=== PATIENT | female | born 1975 | race African-American/Black ===

== ENCOUNTER 2019-05-20 12:56 | Emergency (ER) | payer SELFPAY ==
--- NOTE | 2019-05-20 13:17 | EDM.PDOC ---
ED HPI GENERAL MEDICAL PROBLEM - General Chief Complaint: Respiratory Problem Stated Complaint: BAD COUGH Time Seen by Provider: 05/20/19 13:16 Source of Information: Reports: Patient History Limitations: Reports: No Limitations - History of Present Illness INITIAL COMMENTS - FREE TEXT/NARRATIVE: HISTORY AND PHYSICAL: History of present illness: Patient is a 44-year-old female presents the ED with complaint of cough x1 week. She states in the last couple of days her cough is worsened and she has not been able to sleep. She states she is having pain in her chest secondary to the cough. She has had a couple episodes of vomiting due to coughing so hard. She denies fevers, chills, abdominal pain, diarrhea, shortness of breath. Review of systems: As per history of present illness and below otherwise all systems reviewed and negative. Past medical history: As per history of present illness and as reviewed below otherwise noncontributory. Surgical history: As per history of present illness and as reviewed below otherwise noncontributory. Social history: No reported history of drug or alcohol abuse. Family history: As per history of present illness and as reviewed below otherwise noncontributory. Physical exam: General: Patient sitting comfortably in no acute distress and nontoxic appearing HEENT: Atraumatic, normocephalic, pupils reactive, negative for conjunctival pallor or scleral icterus, mucous membranes moist, throat clear, neck supple, nontender, trachea midline. No meningeal signs. Lungs: Clear to auscultation, breath sounds equal bilaterally, chest nontender. Heart: S1S2, regular, negative for clicks, rubs, or overt murmur. Abdomen: Soft, nondistended, nontender. Negative for masses or hepatosplenomegaly. Negative for costovertebral tenderness. No rigidity, rebound , guarding. Pelvis: Stable nontender. Genitourinary: Deferred. Rectal: Deferred. Extremities: Atraumatic, negative for cords or calf pain. Neurovascular unremarkable. Neuro: Awake, alert, oriented. Cranial nerves II through XII unremarkable. Cerebellum unremarkable. Motor and sensory unremarkable throughout. Exam nonfocal. Notes: Diagnostics: Influenza, chest x-ray Therapeutics: none Prescriptions: Azithromycin Fili Hooker Impression: Acute bronchitis Plan: Take medications as instructed Follow up with primary care provider Return to ED as needed as discussed Definitive disposition and diagnosis as appropriate pending reevaluation and review of above. Chest Pain Score (Numeric/FACES): 7 - Related Data Allergies Allergy/AdvReac Type Severity Reaction Status Date / Time No Known Allergies Allergy Verified 05/20/19 13:08 Home Meds: Home Meds Azithromycin [Zithromax] 250 mg PO ASDIRECTED #1 dosepk 05/20/19 [Rx] Benzonatate [Tessalon Perle] 100 mg PO TID #15 capsule 05/20/19 [Rx] Past Medical History - Infectious Disease History Infectious Disease History: Reports: Chicken Pox - Past Surgical History GI Surgical History: Reports: Cholecystectomy Female Surgical History: Reports: Tubal Ligation Social & Family History - Family History Family Medical History: Noncontributory - Tobacco Use Smoking Status *Q: Former Smoker Used Tobacco, but Quit: Yes Month/Year Tobacco Last Used: 2018 - Caffeine Use Caffeine Use: Reports: Coffee - Recreational Drug Use Recreational Drug Use: No ED ROS GENERAL - Review of Systems Review Of Systems: Comprehensive ROS is negative, except as noted in HPI. ED EXAM, GENERAL - Physical Exam Exam: See Below (See dictation) Course - Vital Signs Last Recorded V/S: Last Vital Signs Temp 97.7 F 05/20/19 13:09 Pulse 92 05/20/19 13:09 Resp 20 05/20/19 13:09 BP 106/69 05/20/19 13:09 Pulse Ox 96 05/20/19 13:09 Departure - Departure Time of Disposition: 14:28 Disposition: Home, Self-Care 01 Condition: Good Clinical Impression: Acute bronchitis - Discharge Information Prescriptions: Azithromycin [Zithromax] 250 mg PO ASDIRECTED #1 dosepk Benzonatate [Tessalon Perle] 100 mg PO TID #15 capsule Referrals: PCP,Not In Area [Primary Care Provider] - Forms: ED Department Discharge Additional Instructions: The following information is given to patients seen in the emergency department who are being discharged to home. This information is to outline your options for follow-up care. We provide all patients seen in our emergency department with a follow-up referral. The need for follow-up, as well as the timing and circumstances, are variable depending upon the specifics of your emergency department visit. If you don't have a primary care physician on staff, we will provide you with a referral. We always advise you to contact your personal physician following an emergency department visit to inform them of the circumstance of the visit and for follow-up with them and/or the need for any referrals to a consulting specialist. The emergency department will also refer you to a specialist when appropriate. This referral assures that you have the opportunity for follow-up care with a specialist. All of these measure are taken in an effort to provide you with optimal care, which includes your follow-up. Under all circumstances we always encourage you to contact your private physician who remains a resource for coordinating your care. When calling for follow-up care, please make the office aware that this follow-up is from your recent emergency room visit. If for any reason you are refused follow-up, please contact the [facility] Emergency Department at and asked to speak to the emergency department charge nurse. [facility] [address] [place] [address] [place] [address] Take medications as instructed Follow up with primary care provider Return to ED as needed as discussed Sepsis Event Note - Evaluation Sepsis Screening Result: No Definite Risk - Focused Exam Vital Signs: Vital Signs Temp Pulse Resp BP Pulse Ox 05/20/19 13:09 97.7 F 92 20 106/69 96 Date Exam was Performed: 05/20/19 Time Exam was Performed: 14:28
--- NOTE | 2019-05-20 14:26 | CR ---
Chest: 2 views of the chest were obtained. Comparison: No prior chest x-ray. Heart size and mediastinum are normal. Lungs are clear. Bony structures are unremarkable. Surgical clips are noted within the upper abdomen. Impression: 1. Nothing acute is seen on 2 view chest x-ray. Diagnostic code #2 This report was dictated in [place] Standard Time
== END 2019-05-20 14:39 | disposition home or self-care (01) ==
LOC: MW.ED 12:56
DX: J20.9 Acute bronchitis, unspecified (principal); Z90.49 Acquired absence of other specified parts of digestive tract; Z98.51 Tubal ligation status; Z87.891 Personal history of nicotine dependence
CPT/HCPCS: 71046; 71046-26; 87804; 99283; 99283-25

== ENCOUNTER 2019-12-27 08:38 | Emergency (ER) | payer MEDICAID, OTHER ==
[2019-12-27] MEDS ORDERED: Ibuprofen 800 MG Tab PO ONE (09:04)
--- NOTE | 2019-12-27 09:15 | EDM.PDOC ---
ED HPI GENERAL MEDICAL PROBLEM - General Chief Complaint: Upper Extremity Injury/Pain Stated Complaint: SWOLLEN LT WRIST Time Seen by Provider: 12/27/19 08:58 - History of Present Illness INITIAL COMMENTS - FREE TEXT/NARRATIVE: History of present illness: Patient presents with concerns about left hand pain she is not had any injuries no bites or other trauma but the hand is red and swollen and painful this began 2 days ago and is getting worse. She denies any fever chills she denies having other medical problems other than Sjogren's syndrome. Nothing makes it better or worse. Review of systems: As per history of present illness and below otherwise all systems reviewed and negative. Past medical history: As per history of present illness and as reviewed below otherwise noncontributory. Surgical history: As per history of present illness and as reviewed below otherwise noncontributory. Social history: No reported history of drug or alcohol abuse. Family history: As per history of present illness and as reviewed below otherwise noncontributory. Physical exam: HEENT: Atraumatic, normocephalic, pupils reactive, negative for conjunctival pallor or scleral icterus, mucous membranes moist, throat clear, neck supple, nontender, trachea midline. Lungs: Clear to auscultation, breath sounds equal bilaterally, chest nontender. Heart: S1S2, regular, negative for clicks, rubs, or JVD. Abdomen: Soft, nondistended, nontender. Negative for masses or hepatosplenomegaly. Negative for costovertebral tenderness. Pelvis: Stable nontender. Genitourinary: Deferred. Rectal: Deferred. Extremities: Atraumatic, negative for cords or calf pain. Neurovascular unremarkable. Left hand on the dorsum aspect of the hand is red and tender and warm to touch. Consistent with cellulitis Neuro: Awake, alert, oriented. Cranial nerves II through XII unremarkable. Cerebellum unremarkable. Motor and sensory unremarkable throughout. Exam nonfocal. Diagnostics: [] Therapeutics: [] Impression: Cellulitis left hand [] Plan: Patient be started on naproxen and doxycycline return to the ED over the weekend if worsening [] Definitive disposition and diagnosis as appropriate pending reevaluation and review of above. left writs Pain Score (Numeric/FACES): 9 - Related Data Allergies Allergy/AdvReac Type Severity Reaction Status Date / Time No Known Allergies Allergy Verified 12/27/19 08:52 Home Meds: Home Meds Doxycycline [Vibra-Tabs] 100 mg PO BID #20 tablet 12/27/19 [Rx] Multivitamin [Multi-Vitamin Daily] 1 tab PO DAILY 12/27/19 [History] Naproxen Sodium [Anaprox DS] 550 mg PO BID #20 tab 12/27/19 [Rx] oxyCODONE 10 mg PO TID 12/27/19 [History] Past Medical History HEENT History: Reports: None Cardiovascular History: Reports: None Respiratory History: Reports: None Gastrointestinal History: Reports: None Genitourinary History: Reports: None 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 Musculoskeletal History: Reports: None Neurological History: Reports: None Psychiatric History: Reports: None Endocrine/Metabolic History: Reports: None Hematologic History: Reports: None Immunologic History: Reports: Other (See Below) Other Immunologic History: Sjogrens syndrome Oncologic (Cancer) History: Reports: None Dermatologic History: Reports: None - Infectious Disease History Infectious Disease History: Reports: Chicken Pox - Past Surgical History Head Surgeries/Procedures: Reports: None HEENT Surgical History: Reports: None Cardiovascular Surgical History: Reports: None Respiratory Surgical History: Reports: None GI Surgical History: Reports: Cholecystectomy, Other (See Below) Other GI Surgeries/Procedures: surgery on abdomen to remove tumor Female Surgical History: Reports: Tubal Ligation Endocrine Surgical History: Reports: None Neurological Surgical History: Reports: None Musculoskeletal Surgical History: Reports: None Oncologic Surgical History: Reports: None Dermatological Surgical History: Reports: None Social & Family History - Family History Family Medical History: Noncontributory - Tobacco Use Smoking Status *Q: Never Smoker Second Hand Smoke Exposure: No - Caffeine Use Caffeine Use: Reports: None - Recreational Drug Use Recreational Drug Use: No Review of Systems - Review of Systems Review Of Systems: See Below ED EXAM, GENERAL - Physical Exam Exam: See Below Course - Vital Signs Last Recorded V/S: Last Vital Signs Temp 35.9 C L 12/27/19 08:51 Pulse 95 12/27/19 08:51 Resp 18 12/27/19 08:51 BP 140/71 12/27/19 08:51 Pulse Ox 95 12/27/19 08:51 - Orders/Labs/Meds Meds: Medications Discontinued Medications Generic Name Dose Route Start Last Admin Trade Name Freq PRN Reason Stop Dose Admin Ibuprofen 800 mg 12/27/19 09:04 Motrin PO 12/27/19 09:05 ONETIME ONE Departure - Departure Time of Disposition: 09:14 Disposition: Home, Self-Care 01 Condition: Good Clinical Impression: Cellulitis - Discharge Information *PRESCRIPTION DRUG MONITORING PROGRAM REVIEWED*: Not Applicable *COPY OF PRESCRIPTION DRUG MONITORING REPORT IN PATIENT PILAR: Not Applicable Prescriptions: Naproxen Sodium [Anaprox DS] 550 mg PO BID #20 tab Doxycycline [Vibra-Tabs] 100 mg PO BID #20 tablet Referrals: Anika Sanches NP [Primary Care Provider] - Additional Instructions: The following information is given to patients seen in the emergency department who are being discharged to home. This information is to outline your options for follow-up care. We provide all patients seen in our emergency department with a follow-up referral. The need for follow-up, as well as the timing and circumstances, are variable depending upon the specifics of your emergency department visit. If you don't have a primary care physician on staff, we will provide you with a referral. We always advise you to contact your personal physician following an emergency department visit to inform them of the circumstance of the visit and for follow-up with them and/or the need for any referrals to a consulting specialist. The emergency department will also refer you to a specialist when appropriate. This referral assures that you have the opportunity for follow-up care with a specialist. All of these measure are taken in an effort to provide you with optimal care, which includes your follow-up. Under all circumstances we always encourage you to contact your private physician who remains a resource for coordinating your care. When calling for follow-up care, please make the office aware that this follow-up is from your recent emergency room visit. If for any reason you are refused follow-up, please contact the [facility] Emergency Department at and asked to speak to the emergency department charge nurse. Sepsis Event Note (ED) - Evaluation Sepsis Screening Result: No Definite Risk - Focused Exam Vital Signs: Vital Signs Temp Pulse Resp BP Pulse Ox 12/27/19 08:51 35.9 C L 95 18 140/71 95
== END 2019-12-27 09:25 | disposition home or self-care (01) ==
LOC: MW.ED 08:38
DX: L03.114 Cellulitis of left upper limb (principal)
CPT/HCPCS: 99283; A9270; 99282

== ENCOUNTER 2019-12-28 18:17 | Emergency (ER) | payer MEDICAID ==
[2019-12-28] MEDS ORDERED: Ondansetron 4 MG Tab.DIS PO ONE (18:38)
--- NOTE | 2019-12-28 18:44 | EDM.PDOC ---
ED HPI GENERAL MEDICAL PROBLEM - General Chief Complaint: Skin Complaint Stated Complaint: CELLULITIS LT HAND, NAUSEA Time Seen by Provider: 12/28/19 18:19 - History of Present Illness INITIAL COMMENTS - FREE TEXT/NARRATIVE: History of present illness: [] Patient presents with nausea when taking her antibiotics. Patient was seen by me previously this week for left hand cellulitis she is placed on doxycycline and naproxen she is having some upset stomach to the medication. The hand is improved markedly and she denies any other problems but the nausea is making it difficult for her to eat drink fluids and take her medications. No other complaints no other concerns Review of systems: As per history of present illness and below otherwise all systems reviewed and negative. Past medical history: As per history of present illness and as reviewed below otherwise noncontributory. Surgical history: As per history of present illness and as reviewed below otherwise noncontributory. Social history: No reported history of drug or alcohol abuse. Family history: As per history of present illness and as reviewed below otherwise noncontributory. Physical exam: HEENT: Atraumatic, normocephalic, pupils reactive, negative for conjunctival pallor or scleral icterus, mucous membranes moist, throat clear, neck supple, nontender, trachea midline. Lungs: Clear to auscultation, breath sounds equal bilaterally, chest nontender. Heart: S1S2, regular, negative for clicks, rubs, or JVD. Abdomen: Soft, nondistended, nontender. Negative for masses or hepatosplenomegaly. Negative for costovertebral tenderness. Pelvis: Stable nontender. Genitourinary: Deferred. Rectal: Deferred. Extremities: Atraumatic, negative for cords or calf pain. Neurovascular unremarkable. The cellulitis of the left little finger and surrounding tissues has improved since I first saw the patient. Neuro: Awake, alert, oriented. Cranial nerves II through XII unremarkable. Cerebellum unremarkable. Motor and sensory unremarkable throughout. Exam nonfocal. Diagnostics: [] Therapeutics: [] Impression: Nausea secondary to medication [] Plan: I will dispense a couple Zofran ODT tabs for the patient write her a work note for light duty for a couple days and she will get a prescription for 12 doses of Zofran ODT she can fill in the morning at her pharmacy. [] Definitive disposition and diagnosis as appropriate pending reevaluation and rev iew of above. - Related Data Allergies Allergy/AdvReac Type Severity Reaction Status Date / Time No Known Allergies Allergy Verified 12/28/19 18:28 Home Meds: Home Meds Doxycycline [Vibra-Tabs] 100 mg PO BID #20 tablet 12/27/19 [Rx] Multivitamin [Multi-Vitamin Daily] 1 tab PO DAILY 12/27/19 [History] Naproxen Sodium [Anaprox DS] 550 mg PO BID #20 tab 12/27/19 [Rx] oxyCODONE 10 mg PO TID 12/27/19 [History] Ondansetron [Zofran ODT] 4 mg PO Q6H PRN 5 Days #12 tab.dis 12/28/19 [Rx] Past Medical History HEENT History: Reports: None Cardiovascular History: Reports: None Respiratory History: Reports: None Gastrointestinal History: Reports: None Genitourinary History: Reports: None 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 Musculoskeletal History: Reports: None Neurological History: Reports: None Psychiatric History: Reports: None Endocrine/Metabolic History: Reports: None Hematologic History: Reports: None Immunologic History: Reports: Other (See Below) Other Immunologic History: Sjogrens syndrome Oncologic (Cancer) History: Reports: None Dermatologic History: Reports: Cellulitis - Infectious Disease History Infectious Disease History: Reports: None - Past Surgical History Head Surgeries/Procedures: Reports: None HEENT Surgical History: Reports: None Cardiovascular Surgical History: Reports: None Respiratory Surgical History: Reports: None GI Surgical History: Reports: Cholecystectomy, Other (See Below) Other GI Surgeries/Procedures: surgery on abdomen to remove tumor Female Surgical History: Reports: Tubal Ligation Endocrine Surgical History: Reports: None Neurological Surgical History: Reports: None Musculoskeletal Surgical History: Reports: None Oncologic Surgical History: Reports: None Dermatological Surgical History: Reports: None Social & Family History - Family History Family Medical History: Noncontributory - Tobacco Use Smoking Status *Q: Never Smoker Second Hand Smoke Exposure: No - Caffeine Use Caffeine Use: Reports: Tea - Recreational Drug Use Recreational Drug Use: No ED ROS GENERAL - Review of Systems Review Of Systems: See Below ED EXAM, SKIN/RASH Exam: See Below Course - Vital Signs Last Recorded V/S: Last Vital Signs Temp 36.4 C 12/28/19 18:28 Pulse 92 12/28/19 18:28 Resp 17 12/28/19 18:28 BP 120/80 12/28/19 18:28 Pulse Ox 97 12/28/19 18:28 Departure - Departure Time of Disposition: 18:43 Disposition: Home, Self-Care 01 Condition: Good Clinical Impression: Nausea, Cellulitis - Discharge Information *PRESCRIPTION DRUG MONITORING PROGRAM REVIEWED*: Not Applicable *COPY OF PRESCRIPTION DRUG MONITORING REPORT IN PATIENT PILAR: Not Applicable Prescriptions: Ondansetron [Zofran ODT] 4 mg PO Q6H PRN 5 Days #12 tab.dis PRN Reason: Nausea/Vomiting Instructions: Cellulitis, Adult, Nausea, Adult Referrals: Anika Sanches SIGNING TEACHER [Primary Care Provider] - Additional Instructions: The following information is given to patients seen in the emergency department who are being discharged to home. This information is to outline your options for follow-up care. We provide all patients seen in our emergency department with a follow-up referral. The need for follow-up, as well as the timing and circumstances, are variable depending upon the specifics of your emergency department visit. If you don't have a primary care physician on staff, we will provide you with a referral. We always advise you to contact your personal physician following an emergency department visit to inform them of the circumstance of the visit and for follow-up with them and/or the need for any referrals to a consulting specialist. The emergency department will also refer you to a specialist when appropriate. This referral assures that you have the opportunity for follow-up care with a specialist. All of these measure are taken in an effort to provide you with optimal care, which includes your follow-up. Under all circumstances we always encourage you to contact your private physician who remains a resource for coordinating your care. When calling for follow-up care, please make the office aware that this follow-up is from your recent emergency room visit. If for any reason you are refused follow-up, please contact the [facility] Emergency Department at and asked to speak to the emergency department charge nurse. [facility] [address] [place] [id number] [address] Sepsis Event Note (ED) - Evaluation Sepsis Screening Result: No Definite Risk - Focused Exam Vital Signs: Vital Signs Temp Pulse Resp BP Pulse Ox 12/28/19 18:28 36.4 C 92 17 120/80 97
== END 2019-12-28 19:00 | disposition home or self-care (01) ==
LOC: MW.ED 18:17
DX: L03.012 Cellulitis of left finger (principal); R11.0 Nausea; T36.8X5A Adverse effect of other systemic antibiotics, initial encounter; T39.315A Adverse effect of propionic acid derivatives, initial encounter; Z90.49 Acquired absence of other specified parts of digestive tract; Z79.899 Other long term (current) drug therapy
CPT/HCPCS: 99283; A9270; 99282

== ENCOUNTER 2019-12-30 08:16 | Emergency (ER) | payer MEDICAID ==
[2019-12-30] MEDS ORDERED: Sodium Chloride 0.9% 2.5 ML Syringe FLUSH PRN (08:30)
[2019-12-30] MEDS ORDERED: Sodium Chloride 0.9% 10 ML Syringe FLUSH PRN (08:30)
--- NOTE | 2019-12-30 08:35 | EDM.PDOC ---
ED HPI GENERAL MEDICAL PROBLEM - General Chief Complaint: Skin Complaint Stated Complaint: Hand Swollen Right Time Seen by Provider: 12/30/19 08:25 - History of Present Illness INITIAL COMMENTS - FREE TEXT/NARRATIVE: History of present illness: Patient presents now with right wrist swelling. Initially saw the patient several days ago with an isolated redness swelling and pain to the left fifth digit there is been an abrasion on the dorsal aspect of that finger for all practical purposes it looked like a cellulitis. She was empirically treated with doxycycline. She was also given naproxen for pain yesterday the patient r eturn to the ED because she was nauseous with her medicines and was getting to the point where she was not able to take the medicines the pain in the left fifth digit was resolving the redness was resolving in fact it looked quite a bit better. Now she has redness and swelling on the medial aspect dorsally of her right wrist. She denies any fever chills she has not had any bug or insect bites. No prior medical problems no prior issues with arthritis. There is been no trauma to either hand that she recalls with the involvement of the right wrist now it is beginning to look more like a polyarthritis of some sort. Patient has not attempted to contact or see her primary care doctor as instructed on each prior visit Review of systems: As per history of present illness and below otherwise all systems reviewed and negative. Past medical history: As per history of present illness and as reviewed below otherwise noncontributory. Surgical history: As per history of present illness and as reviewed below otherwise noncontributory. Social history: No reported history of drug or alcohol abuse. Family history: As per history of present illness and as reviewed below otherwise noncon tributory. Physical exam: HEENT: Atraumatic, normocephalic, pupils reactive, negative for conjunctival pallor or scleral icterus, mucous membranes moist, throat clear, neck supple, nontender, trachea midline. Lungs: Clear to auscultation, breath sounds equal bilaterally, chest nontender. Heart: S1S2, regular, negative for clicks, rubs, or JVD. Abdomen: Soft, nondistended, nontender. Negative for masses or hepatosplenomegaly. Negative for costovertebral tenderness. Pelvis: Stable nontender. Genitourinary: Deferred. Rectal: Deferred. Extremities: Atraumatic, negative for cords or calf pain. Neurovascular unremarkable. The redness and swelling the left digit fifth digit has improved the right wrist now is red and swollen and tender. Good distal pulse motor and sensation are present. No other affected joints are noted at this time Neuro: Awake, alert, oriented. Cranial nerves II through XII unremarkable. Cerebellum unremarkable. Motor and sensory unremarkable throughout. Exam nonfocal. Diagnostics: [] Therapeutics: [] Impression: Polyarthritis? Cellulitis? [] Plan: Blood work will be drawn for CBC chemistry sed rate and CRP. [] Definitive disposition and diagnosis as appropriate pending reevaluation and review of above. Right Hand Pain Score (Numeric/FACES): 6 - Related Data Allergies Allergy/AdvReac Type Severity Reaction Status Date / Time No Known Allergies Allergy Verified 12/30/19 08:26 Home Meds: Home Meds Doxycycline [Vibra-Tabs] 100 mg PO BID #20 tablet 12/27/19 [Rx] Multivitamin [Multi-Vitamin Daily] 1 tab PO DAILY 12/27/19 [History] Naproxen Sodium [Anaprox DS] 550 mg PO BID #20 tab 12/27/19 [Rx] oxyCODONE 10 mg PO TID PRN 12/27/19 [History] predniSONE 60 mg PO WITHBREAKFAST 5 Days #15 tab 12/30/19 [Rx] Past Medical History HEENT History: Reports: None Cardiovascular History: Reports: None Respiratory History: Reports: None Gastrointestinal History: Reports: None Genitourinary History: Reports: None 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 Musculoskeletal History: Reports: None Neurological History: Reports: None Psychiatric History: Reports: None Endocrine/Metabolic History: Reports: None Hematologic History: Reports: None Immunologic History: Reports: Other (See Below) Other Immunologic History: Sjogrens syndrome Oncologic (Cancer) History: Reports: None Dermatologic History: Reports: Cellulitis - Infectious Disease History Infectious Disease History: Reports: None - Past Surgical History Head Surgeries/Procedures: Reports: None HEENT Surgical History: Reports: None Cardiovascular Surgical History: Reports: None Respiratory Surgical History: Reports: None GI Surgical History: Reports: Cholecystectomy, Other (See Below) Other GI Surgeries/Procedures: surgery on abdomen to remove tumor Female Surgical History: Reports: Tubal Ligation Endocrine Surgical History: Reports: None Neurological Surgical History: Reports: None Musculoskeletal Surgical History: Reports: None Oncologic Surgical History: Reports: None Dermatological Surgical History: Reports: None Social & Family History - Family History Family Medical History: Noncontributory - Caffeine Use Caffeine Use: Reports: Tea ED ROS GENERAL - Review of Systems Review Of Systems: See Below ED EXAM, SKIN/RASH Exam: See Below Course - Vital Signs Text/Narrative:: Patient has a normal white blood cell count and elevated inflammatory markers. I will start her on a burst of prednisone and have her continue with the doxycycline and follow-up with primary care. When I discussed this with the patient now on her third ED visit she reveals to me ramon almanza by the way I have been diagnosed with Sjogren's syndrome and lupus. In 3 visit she had not bothered to mention any of this. She has an appointment with primary care in the morning. She will be discharged home she is to take prednisone 60 mg for a 5-day burst stop her naproxen for 5 days Tylenol for pain and she may use the Zofran as needed. Last Recorded V/S: Last Vital Signs Temp 35.9 C L 12/30/19 08:27 Pulse 90 12/30/19 08:27 Resp 16 12/30/19 08:27 BP 129/60 12/30/19 08:27 Pulse Ox 97 12/30/19 08:27 - Orders/Labs/Meds Orders: Active Orders 24 hr Category Date Time Status Sodium Chloride 0.9% [Saline Flush] Med 12/30/19 08:30 Active 10 ml FLUSH ASDIRECTED PRN Sodium Chloride 0.9% [Saline Flush] Med 12/30/19 08:30 Active 2.5 ml FLUSH ASDIRECTED PRN Saline Lock Insert [OM.PC] Stat Oth 12/30/19 08:30 Ordered Medication Orders Sodium Chloride (Saline Flush) 10 ml FLUSH ASDIRECTED PRN PRN Reason: Keep Vein Open Last Admin: 12/30/19 08:41 Dose: 10 ml Documented by: DANA Sodium Chloride (Saline Flush) 2.5 ml FLUSH ASDIRECTED PRN PRN Reason: Keep Vein Open Last Admin: 12/30/19 08:41 Dose: 2.5 ml Documented by: DANA Labs: Laboratory Tests 12/30/19 12/30/19 12/30/19 Range/Units 08:40 08:40 08:40 WBC 5.50 (4.0-11.0) K/uL RBC 4.20 L (4.30-5.90) M/uL Hgb 11.9 L (12.0-16.0) g/dL Hct 35.6 L (36.0-46.0) % MCV 84.8 (80.0-98.0) fL MCH 28.3 (27.0-32.0) pg MCHC 33.4 (31.0-37.0) g/dL RDW Std Deviation 41.8 (28.0-62.0) fl RDW Coeff of Donna 14 (11.0-15.0) % Plt Count 323 (150-400) K/uL MPV 10.50 (7.40-12.00) fL Neut % (Auto) 62.1 (48.0-80.0) % Lymph % (Auto) 25.8 (16.0-40.0) % [place] % (Auto) 11.5 (0.0-15.0) % Eos % (Auto) 0.4 (0.0-7.0) % Baso % (Auto) 0.2 (0.0-1.5) % Neut # (Auto) 3.4 (1.4-5.7) K/uL Lymph # (Auto) 1.4 (0.6-2.4) K/uL [place] # (Auto) 0.6 (0.0-0.8) K/uL Eos # (Auto) 0.0 (0.0-0.7) K/uL Baso # (Auto) 0.0 (0.0-0.1) K/uL Nucleated RBC % 0.0 /100WBC Nucleated RBCs # 0 K/uL ESR 39 H (0-19) mm/hr Sodium 134 L (136-145) mmol/L Potassium 3.8 (3.5-5.1) mmol/L Chloride 101 (98-107) mmol/L Carbon Dioxide 23.2 (21.0-32.0) mmol/L BUN 15 (7.0-18.0) mg/dL Creatinine 0.7 (0.6-1.0) mg/dL Est Cr Clr Drug Dosing 88.56 mL/min Estimated GFR (MDRD) > 60.0 ml/min Glucose 131 H (74-106) mg/dL Calcium 9.0 (8.5-10.1) mg/dL Total Bilirubin 0.4 (0.2-1.0) mg/dL AST 34 (15-37) IU/L ALT 26 (14-63) IU/L Alkaline Phosphatase 85 (46-116) U/L C-Reactive Protein 5.80 H (0.00-0.90) mg/dL Total Protein 7.3 (6.4-8.2) g/dL Albumin 3.2 L (3.4-5.0) g/dL Globulin 4.1 H (2.6-4.0) g/dL Albumin/Globulin Ratio 0.8 L (0.9-1.6) Meds: Medications Generic Name Dose Route Start Last Admin Trade Name Freq PRN Reason Stop Dose Admin Sodium Chloride 10 ml 12/30/19 08:30 12/30/19 08:41 Saline Flush FLUSH 10 ml ASDIRECTED PRN Administration Keep Vein Open Sodium Chloride 2.5 ml 12/30/19 08:30 12/30/19 08:41 Saline Flush FLUSH 2.5 ml ASDIRECTED PRN Administration Keep Vein Open Departure - Departure Time of Disposition: 09:46 Disposition: Home, Self-Care 01 Condition: Good Clinical Impression: Polyarthritis - Discharge Information *PRESCRIPTION DRUG MONITORING PROGRAM REVIEWED*: Not Applicable *COPY OF PRESCRIPTION DRUG MONITORING REPORT IN PATIENT IPLAR: Not Applicable Prescriptions: predniSONE 60 mg PO WITHBREAKFAST 5 Days #15 tab Instructions: Arthritis, [id number] Referrals: Anika Sanches VALVE GRINDER [Primary Care Provider] - Forms: ED Department Discharge Additional Instructions: The following information is given to patients seen in the emergency department who are being discharged to home. This information is to outline your options for follow-up care. We provide all patients seen in our emergency department with a follow-up referral. The need for follow-up, as well as the timing and circumstances, are variable depending upon the specifics of your emergency department visit. If you don't have a primary care physician on staff, we will provide you with a referral. We always advise you to contact your personal physician following an emergency department visit to inform them of the circumstance of the visit and for follow-up with them and/or the need for any referrals to a consulting specialist. The emergency department will also refer you to a specialist when appropriate. This referral assures that you have the opportunity for follow-up care with a specialist. All of these measure are taken in an effort to provide you with optimal care, which includes your follow-up. Under all circumstances we always encourage you to contact your private physician who remains a resource for coordinating your care. When calling for follow-up care, please make the office aware that this follow-up is from your recent emergency room visit. If for any reason you are refused follow-up, please contact the [facility] Emergency Department at and asked to speak to the emergency department charge nurse. You need to contact her primary care mgr and see them for follow-up for these issues. Sepsis Event Note (ED) - Focused Exam Vital Signs: Vital Signs Temp Pulse Resp BP Pulse Ox 12/30/19 08:27 35.9 C L 90 16 129/60 97 - My Orders Last 24 Hours: My Active Orders 12/30/19 08:30 Sodium Chloride 0.9% [Saline Flush] 10 ml FLUSH ASDIRECTED PRN Sodium Chloride 0.9% [Saline Flush] 2.5 ml FLUSH ASDIRECTED PRN Saline Lock Insert [OM.PC] Stat - Assessment/Plan Last 24 Hours: My Active Orders 12/30/19 08:30 Sodium Chloride 0.9% [Saline Flush] 10 ml FLUSH ASDIRECTED PRN Sodium Chloride 0.9% [Saline Flush] 2.5 ml FLUSH ASDIRECTED PRN Saline Lock Insert [OM.PC] Stat
[2019-12-30 09:12] LABS: BLOOD UREA NITROGEN,BUN 15 mg/dL (7.0-18.0); CARBON DIOXIDE,CO2 23.2 mmol/L (21.0-32.0); CHLORIDE,CL 101 mmol/L (98-107); GLUCOSE RANDOM 131 mg/dL (74-106); POTASSIUM,K 3.8 mmol/L (3.5-5.1); SODIUM,NA 134 mmol/L (136-145)
== END 2019-12-30 10:03 | disposition home or self-care (01) ==
LOC: MW.ED 08:16
DX: M13.0 Polyarthritis, unspecified (principal)
CPT/HCPCS: 36415; 80053; 85025; 85652; 86140; 99282; 99283

== ENCOUNTER 2020-03-02 18:30 | Emergency (ER) | payer MEDICAID ==
--- NOTE | 2020-03-02 18:41 | EDM.PDOC ---
ED HPI GENERAL MEDICAL PROBLEM - General Chief Complaint: Chest Pain Stated Complaint: CHEST PAIN Time Seen by Provider: 03/02/20 18:38 Upper Chest Pain Score (Numeric/FACES): 6 - Related Data Allergies Allergy/AdvReac Type Severity Reaction Status Date / Time No Known Allergies Allergy Verified 03/02/20 18:39 Home Meds: Home Meds Multivitamin [Multi-Vitamin Daily] 1 tab PO DAILY 12/27/19 [History] Clindamycin HCl 1 cap PO TID #30 capsule 03/02/20 [Rx] Pantoprazole Sodium [Protonix] 40 mg PO DAILY #20 tablet. 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 Musculoskeletal History: Reports: None Neurological History: Reports: None Psychiatric History: Reports: None Endocrine/Metabolic History: Reports: None Hematologic History: Reports: None Immunologic History: Reports: Other (See Below) Other Immunologic History: Sjogrens syndrome Oncologic (Cancer) History: Reports: None Dermatologic History: Reports: Cellulitis - Infectious Disease History Infectious Disease History: Reports: None - Past Surgical History Head Surgeries/Procedures: Reports: None HEENT Surgical History: Reports: None Cardiovascular Surgical History: Reports: None Respiratory Surgical History: Reports: None GI Surgical History: Reports: Cholecystectomy, Other (See Below) Other GI Surgeries/Procedures: surgery on abdomen to remove tumor Female Surgical History: Reports: Tubal Ligation Endocrine Surgical History: Reports: None Neurological Surgical History: Reports: None Musculoskeletal Surgical History: Reports: None Oncologic Surgical History: Reports: None Dermatological Surgical History: Reports: None Social & Family History - Family History Family Medical History: Noncontributory - Caffeine Use Caffeine Use: Reports: Tea ED ROS GENERAL - Review of Systems Review Of Systems: Comprehensive ROS is negative, except as noted in HPI. ED EXAM, GENERAL - Physical Exam Exam: See Below Exam Limited By: No Limitations General Appearance: Alert, No Apparent Distress Ears: Normal External Exam Nose: Normal Inspection Throat/Mouth: Normal Inspection Head: Atraumatic, Normocephalic Neck: Normal Inspection Respiratory/Chest: No Respiratory Distress, Lungs Clear Cardiovascular: Normal Peripheral Pulses, Regular Rate, Rhythm Back Exam: Normal Inspection Extremities: Normal Inspection, Normal Range of Motion Neurological: Alert, Oriented, Normal Cognition Psychiatric: Normal Affect, Normal Mood Skin Exam: Warm, Dry, Intact, Normal Color, No Rash Lymphatic: No Adenopathy #1 Interpretation EKG Date: 03/02/20 Rhythm: NSR [place]: Normal P-Wave: Present QRS: Normal ST-T: Normal QT: Normal EKG Interpretation Comments: Abnormal Q waves V1-2 >30ms Course - Vital Signs Last Recorded V/S: Last Vital Signs Temp 35.8 C L 03/02/20 18:35 Pulse 73 03/02/20 19:41 Resp 16 03/02/20 19:41 BP 108/68 03/02/20 19:41 Pulse Ox 98 03/02/20 19:41 - Orders/Labs/Meds Orders: Active Orders 24 hr Category Date Time Status EKG 12 Lead [EKG Documentation Completion] [RC] STAT Care 03/02/20 18:53 Active Labs: Laboratory Tests 03/02/20 03/02/20 Range/Units 19:13 19:13 WBC 4.43 (4.0-11.0) K/uL RBC 3.82 L (4.30-5.90) M/uL Hgb 10.8 L (12.0-16.0) g/dL Hct 32.8 L (36.0-46.0) % MCV 85.9 (80.0-98.0) fL MCH 28.3 (27.0-32.0) pg MCHC 32.9 (31.0-37.0) g/dL RDW Std Deviation 45.3 (28.0-62.0) fl RDW Coeff of Donna 14 (11.0-15.0) % Plt Count 266 (150-400) K/uL MPV 10.50 (7.40-12.00) fL Neut % (Auto) 45.4 L (48.0-80.0) % Lymph % (Auto) 41.5 H (16.0-40.0) % [place] % (Auto) 11.5 (0.0-15.0) % Eos % (Auto) 1.4 (0.0-7.0) % Baso % (Auto) 0.2 (0.0-1.5) % Neut # (Auto) 2.0 (1.4-5.7) K/uL Lymph # (Auto) 1.8 (0.6-2.4) K/uL [place] # (Auto) 0.5 (0.0-0.8) K/uL Eos # (Auto) 0.1 (0.0-0.7) K/uL Baso # (Auto) 0.0 (0.0-0.1) K/uL Nucleated RBC % 0.0 /100WBC Nucleated RBCs # 0 K/uL Sodium 136 (136-145) mmol/L Potassium 3.6 (3.5-5.1) mmol/L Chloride 102 (98-107) mmol/L Carbon Dioxide 24.0 (21.0-32.0) mmol/L BUN 11 (7.0-18.0) mg/dL Creatinine 0.7 (0.6-1.0) mg/dL Est Cr Clr Drug Dosing 88.56 mL/min Estimated GFR (MDRD) > 60.0 ml/min Glucose 93 (74-106) mg/dL Calcium 9.1 (8.5-10.1) mg/dL Total Bilirubin 0.2 (0.2-1.0) mg/dL AST 20 (15-37) IU/L ALT 20 (14-63) IU/L Alkaline Phosphatase 80 (46-116) U/L Troponin I < 0.050 (0.000-0.056) ng/mL Total Protein 6.7 (6.4-8.2) g/dL Albumin 3.1 L (3.4-5.0) g/dL Globulin 3.6 (2.6-4.0) g/dL Albumin/Globulin Ratio 0.9 (0.9-1.6) Meds: Medications Discontinued Medications Generic Name Dose Route Start Last Admin Trade Name Freq PRN Reason Stop Dose Admin Al Hydroxide/Mg Hydroxide 15 0 ml 03/02/20 20:28 03/02/20 20:52 ml/ Lidocaine HCl 5 ml PO 03/02/20 20:29 20 each ONETIME ONE Administration Ketorolac Tromethamine 60 mg 03/02/20 20:31 03/02/20 20:52 Toradol IM 03/02/20 20:32 60 mg ONETIME ONE Administration - Re-Assessments/Exams Free Text/Narrative Re-Assessment/Exam: 03/02/20 20:54 On reevaluation the patient states that the pain is still there but it does not keep her from doing things. She again points to about the mid sternum and straight up to the hyoid area without any radiation. She also reports that she had what sounds like a coronary angiogram in the past she states that the television cameraman after the procedure "his exact words were beautiful". Free Text/Narrative Re-Assessment/Exam: 03/02/20 21:32 Patient states that the GI cocktail provided relief and she would like to go home. Departure - Departure Time of Disposition: 21:07 Disposition: Home, Self-Care 01 Condition: Good Clinical Impression: Chest pain Qualifiers: Chest pain type: unspecified Qualified Code(s): R07.9 - Chest pain, unspecified Acid reflux Qualifiers: Esophagitis presence: esophagitis presence not specified Qualified Code(s): K21.9 - Gastro-esophageal reflux disease without esophagitis Referrals: PCP,None [Primary Care Provider] - Elidia Chase MD [Physician] - Forms: ED Department Discharge Additional Instructions: The following information is given to patients seen in the emergency department who are being discharged to home. This information is to outline your options for follow-up care. We provide all patients seen in our emergency department with a follow-up referral. The need for follow-up, as well as the timing and circumstances, are variable depending upon the specifics of your emergency department visit. If you don't have a primary care physician on staff, we will provide you with a referral. We always advise you to contact your personal physician following an emergency department visit to inform them of the circumstance of the visit and for follow-up with them and/or the need for any referrals to a consulting specialist. The emergency department will also refer you to a specialist when appropriate. This referral assures that you have the opportunity for follow-up care with a specialist. All of these measure are taken in an effort to provide you with optimal care, which includes your follow-up. Under all circumstances we always encourage you to contact your private physician who remains a resource for coordinating your care. When calling for follow-up care, please make the office aware that this follow-up is from your recent emergency room visit. If you for any reason you are refused follow-up, please contact the [facility] Emergency Department at and asked to speak to the emergency department charge nurse. 1. You have been given a list of dentists. Please make an appointment as you have deep cavities. Your pain will likely recur until your teeth are properly repaired. 2. Take your antibiotic 3 times daily for your infected tooth 3. You must follow-up with cardiology. Your EKG indicates a possible remote cardiac event. Make an appointment with Dr. Justice by calling the number above in the morning. 4. Sepsis Event Note (ED) - Evaluation Sepsis Screening Result: No Definite Risk - Focused Exam Vital Signs: Vital Signs Temp Pulse Resp BP Pulse Ox 03/02/20 19:41 73 16 108/68 98 03/02/20 18:35 35.8 C L 89 18 132/83 98 - My Orders Last 24 Hours: My Active Orders 03/02/20 18:53 EKG 12 Lead [EKG Documentation Completion] [RC] STAT - Assessment/Plan Last 24 Hours: My Active Orders 03/02/20 18:53 EKG 12 Lead [EKG Documentation Completion] [RC] STAT
--- NOTE | 2020-03-02 19:31 | PCM.SN.2 ---
- Free Text/Narrative Note: The done 1027 at 1837 hrs. shows a sinus rhythm with a heart rate of 70. [place] interval is 138 and QT interval is 448. Equality of 78. Patient has Q waves in aVR V1 and V2 and very minimal preliminary are in aVL. There is no prior for comparison. Pression is that there is no obvious acute injury but there certainly is evidence that she may have had some sort of prior myocardial event. Potation was done at 7:30 PM
[2020-03-02 19:53] LABS: BLOOD UREA NITROGEN,BUN 11 mg/dL (7.0-18.0); CHLORIDE,CL 102 mmol/L (98-107); GLUCOSE RANDOM 93 mg/dL (74-106); POTASSIUM,K 3.6 mmol/L (3.5-5.1); SODIUM,NA 136 mmol/L (136-145)
[2020-03-02] MEDS ORDERED: Alum Hydrox/Mag Hydrox/Simeth 15 ML, Lidocaine 2% 5 ML PO ONE ×2 (20:28)
[2020-03-02] MEDS ORDERED: Ketorolac 60 MG/2 ML SDV IM ONE (20:31)
== END 2020-03-02 21:52 | disposition home or self-care (01) ==
LOC: MW.ED 18:30
DX: K21.9 Gastro-esophageal reflux disease without esophagitis (principal); Z90.49 Acquired absence of other specified parts of digestive tract; Z98.51 Tubal ligation status; Z79.899 Other long term (current) drug therapy
CPT/HCPCS: 36415; 80053; 84484; 85025; 93005; 96372; 99285; A9270; J1885; 93010; 99284

== ENCOUNTER 2020-03-25 10:59 | Day surgery (SDC) | payer MEDICAID ==
[2020-03-25] MEDS ORDERED: Lidocaine 2% 5 ML SDV INJECT ONE (12:30)
[2020-03-25] MEDS ORDERED: Ropivacaine 0.5% 5 MG/ML 30 ML SDV INJECT ONE (12:30)
[2020-03-25] MEDS ORDERED: Iopamidol 200-M 10 ML vial ITHECAL ONE (12:30)
[2020-03-25] MEDS ORDERED: Betamethasone Acetate/Betamethasone Sod Phosphate 30 MG/5 ML MDV EPIDUR ONE (12:30)
--- NOTE | 2020-03-26 13:13 | OR ---
SURGEON: Brittany Triana D.O. DATE OF PROCEDURE: 03/25/2020 PRIMARY SURGEON: Brittany Triana DO ASSISTANTS: OR staff present: 1. Donovan Dougherty. 2. RT. Izabella WOUND CLASS: I. PREOPERATIVE DIAGNOSES: 1. Lumbar degenerative disk disease, L4-5 and L5-S1. 2. Lumbar radiculopathy, left lower extremity at L5. 3. Right lower extremity radiculopathy at L5-S1. POSTOPERATIVE DIAGNOSES: 1. Lumbar degenerative disk disease, L4-5 and L5-S1. 2. Lumbar radiculopathy, left lower extremity at L5. 3. Right lower extremity radiculopathy at L5-S1. PROCEDURES PERFORMED: 1. Right S1 transforaminal epidural steroid injection. 2. Left L5 transforaminal epidural steroid injection. 3. Fluoroscopic guidance for needle placement. 4. Local with oral Valium for sedation. SCREENING QUESTIONS: The patient answered "no" to all of the following questions: 1. Are you allergic to iodine, Betadine or latex? 2. Do you have a bleeding disorder? 3. Do you have any joint replacements, heart valve replacements, or a pacemaker? 4. Are you allergic to anti-inflammatories or blood thinners? 5. Do you have any current local or systemic infections? DESCRIPTION OF PROCEDURE: The patient had the procedure thoroughly explained including risks, benefits and alternatives. Consent was signed in my clinic indicating understanding and willingness to proceed. The patient presented to [facility] [place] where the patient was escorted to the dressing room to disrobe and change into a hospital gown. Preoperative vital signs were taken and stable. The patient reported that Valium was taken prior to the procedure. The patient was brought to the procedure room and placed in the prone position on the table. A pillow was placed under the abdomen in order to flatten the lumbar lordosis. The back was prepped with ChloraPrep and sterilely draped. All personnel in the operating room were dressed in appropriate attire including surgical scrubs, head and shoe covers. This was to ensure sterility while in the treatment room. During the time fluoroscopy was in use, all personnel in the operating room wore lead blackburn with thyroid collars. Sterile technique was used during the procedure. The fluoroscope was placed for the right S1 transforaminal epidural steroid injection. There was no sign of infection at the skin site for needle insertion. The skin was anesthetized with 2% lidocaine with a 27 gauge 1-1/2 inch needle. Then, a 22 gauge 3-1/2 inch spinal needle, advanced to the right S1 posterior foramen. Under direct fluoroscopic guidance needle position was verified in three views; AP, oblique and lateral, with 0.2 cubic centimeters increments of Isovue-200 dye. No intravascular flow pattern was observed under live fluoroscopy. Then 6 milligrams of Celestone and local was slowly injected after negative aspiration of heme, cerebrospinal fluid and no paresthesias were noted. The needle was cleared prior to removal from the skin. Then the fluoroscope was placed for the left L5 transforaminal epidural steroid injection. There was no signs of infection at the skin site for needle insertion. The skin was anesthetized with 2% lidocaine. Then a 22-gauge 3-1/2 inch spinal needle was advanced to the left L5 foramen. Under direct fluoroscopic guidance needle position was verified in 3 views as above. There was no intravascular flow pattern of served under live fluoroscopy with Isovue and 200 dye. Then 6 mg of Celestone and local was slowly injected after negative aspiration. There was no heme, CSF or paresthesias noted. The needle was cleared prior to removal from the skin No adverse reactions were noted. The patient was brought to the recovery room awake and in good condition by my staff. The patient was monitored and discharge instructions were given after a brief stay in the recovery area. Both oral and written discharge and follow up instructions were given. The patient will follow up in the clinic in 3-4 weeks post procedure to evaluate the efficacy. The patient verbalized understanding including understanding of those signs and symptoms that would require emergency care and knows how to contact the office if there are any problems or questions in the meantime. PREOPERATIVE PAIN: 8/10. POSTOPERATIVE PAIN: 0/10. FOLLOWUP: In the Pain Clinic in 1 month. JONATAN / CARLEE /[id number] DANTE
== END 2020-03-25 13:03 ==
LOC: MW.SDS 10:59
PROVIDERS: ATTEND Anesthesiology
DX: M51.17 Intervertebral disc disorders with radiculopathy, lumbosacral region (principal); M51.16 Intervertebral disc disorders with radiculopathy, lumbar region; M79.18 Myalgia, other site; M47.26 Other spondylosis with radiculopathy, lumbar region; M47.27 Other spondylosis with radiculopathy, lumbosacral region; J45.909 Unspecified asthma, uncomplicated; Z79.899 Other long term (current) drug therapy; Z87.891 Personal history of nicotine dependence

== ENCOUNTER 2020-04-22 14:59 | Emergency (ER) | payer MEDICAID ==
[2020-04-22] MEDS ORDERED: Sodium Chloride 0.9% 1,000 ML IV ONE (15:20)
--- NOTE | 2020-04-22 15:53 | EDM.PDOC ---
ED HPI GENERAL MEDICAL PROBLEM - General Chief Complaint: Neuro Symptoms/Deficits Stated Complaint: LIGHT HEADED/PRESSURE IN HEAD Time Seen by Provider: 04/22/20 15:14 Source of Information: Reports: Patient History Limitations: Reports: No Limitations - History of Present Illness INITIAL COMMENTS - FREE TEXT/NARRATIVE: HISTORY AND PHYSICAL: History of present illness: Patient is a 45-year-old female who presents to the emergency room with complaints of sinus pressure and feeling "shaky". Symptoms started yesterday afternoon and have progressively gotten worse. She states that she does not notice any improvement with eating (no history of hypogylcemia). She was diagnosed with COVID-19 on 04/08/2020. During her quarantine she states she had a little sinus pressure and a dry cough but "nothing like this". Today she feels "something going on in my chest" describing it as full. Denies any chest pain or palpitations. She has returned to work and performed her routine ADLs. Patient denies any fever, chills, headache, change in vision, syncope or near syncope. Denies any chest pain, back pain, shortness of breath, abdominal pain, nausea, vomiting, diarrhea, constipation or dysuria. Has not noted any blood in urine or stool. Patient has been eating and drinking appropriately. Review of systems: As per history of present illness and below otherwise all systems reviewed and negative. Past medical history: As per history of present illness and as reviewed below otherwise noncontributory. Surgical history: As per history of present illness and as reviewed below otherwise noncontributory. Social history: See social history for further information Family history: As per history of present illness and as reviewed below otherwise noncontributory. Physical exam: General: Well developed and well nourished 45 year old black female. Alert and orientated x 3. Nontoxic in appearance and in no acute distress. Vital signs are stable and have been reviewed by me. Nursing notes were reviewed. HEENT: Atraumatic, normocephalic, pupils equal and reactive bilaterally, negative for conjunctival pallor or scleral icterus, mucous membranes moist, TMs normal bilaterally, throat clear, neck supple, nontender, trachea midline. No drooling or trismus noted. No meningeal signs. No hot potato voice noted. Lungs: Clear to auscultation, breath sounds equal bilaterally, chest nontender. Normal work of breathing, no accessory muscles used. Dry nonproductive cough noted. Heart: S1S2, regular rate and rhythm without overt murmur Abdomen: Soft, nondistended, nontender. Negative for masses or hepatosplenomegaly. Negative for costovertebral tenderness. Pelvis: Stable nontender. Skin: Intact, warm, dry. No lesions or rashes noted. Hematologic: No petechiae or purpra. Mucosa appropriate color and normal nail bed color and refill. Extremities: Atraumatic, moves all extremities per self without difficulty or deficits, negative for cords or calf pain. Neurovascular unremarkable. Neuro: Awake, alert, oriented. Cranial nerves II through XII unremarkable. Cerebellum unremarkable. Motor and sensory unremarkable throughout. Exam nonfocal. Psychiatric: Mood and affect are appropriate. Normal thought process. Answering questions appropriately. Notes: GCS 15, neurologically intact and without any neuro concerns. We will do some basic lab work with this patient along with a chest x-ray as she has been coughing while here. Patient does have a urinary tract infection. She continues to have sinus pressure, I will put her on Augmentin to treat both UTI and if she is starting a sinusitis. Chest x-ray is unremarkable. Her vital signs remained stable I have talked with the patient about today's findings, in addition to providing specific details for plan of care. Reassessment at the time of disposition demonstrates that the patient is in no acute distress. The patient is stable for discharge, counseling was provided and we discussed in great detail signs and symptoms that would prompt them to return to the Emergency Department. Medication, follow up and supportive care measures were reviewed and discussed. Voices understanding and is agreeable to plan of care. Denies any further questions or concerns at this time. Diagnostics: CBC, CMP, Troponin, EKG, CXR, UA Therapeutics: IV fluids, Toradol Prescription: Augmentin Impression: Sinus Headache UTI Plan: 1. Today your lab work was normal with the exception of a UTI. Will give you an antibiotic that will treat UTI and sinusitis (for your sinus pressure). Normal EKG and chest x-ray. 2. Increase your oral fluids. Alternate Tylenol and Ibuprofen for pain management. Try Some Mucinex for your sinus pressure. 3. We encourage you to follow up with your primary care provider in the next few days for re-evaluation and further care/management. If your symptoms should worsen, new symptoms develop or any of the signs and symptoms we discussed should arise please return to the emergency room or call 911 (if needed). Definitive disposition and diagnosis as appropriate pending reevaluation and review of above. - Related Data Allergies Allergy/AdvReac Type Severity Reaction Status Date / Time No Known Allergies Allergy Verified 04/22/20 15:10 Home Meds: Home Meds Multivitamin [Multi-Vitamin Daily] 1 tab PO DAILY 12/27/19 [History] Pantoprazole Sodium [Protonix] 40 mg PO DAILY #20 tablet.dr 03/02/20 [Rx] Hydroxychloroquine [Plaquenil] 400 mg PO DAILY 04/22/20 [History] Past Medical History HEENT History: Reports: None Cardiovascular History: Reports: None Respiratory History: Reports: None Gastrointestinal History: Reports: None Genitourinary History: Reports: None COMPUTER METHODS ANALYST History: Reports: None Musculoskeletal History: Reports: None Neurological History: Reports: None Psychiatric History: Reports: None Endocrine/Metabolic History: Reports: None Hematologic History: Reports: None Immunologic History: Reports: Other (See Below) Other Immunologic History: Sjogrens syndrome Oncologic (Cancer) History: Reports: None Dermatologic History: Reports: Cellulitis - Infectious Disease History Infectious Disease History: Reports: Chicken Pox - Past Surgical History Head Surgeries/Procedures: Reports: None HEENT Surgical History: Reports: None Cardiovascular Surgical History: Reports: None Respiratory Surgical History: Reports: None GI Surgical History: Reports: Cholecystectomy, Other (See Below) Other GI Surgeries/Procedures: surgery on abdomen to remove tumor Female Surgical History: Reports: Tubal Ligation Endocrine Surgical History: Reports: None Neurological Surgical History: Reports: None Musculoskeletal Surgical History: Reports: None Oncologic Surgical History: Reports: None Dermatological Surgical History: Reports: None Social & Family History - Family History Family Medical History: No Pertinent Family History - Tobacco Use Tobacco Use Status *Q: Never Tobacco User - Caffeine Use Caffeine Use: Reports: Coffee, Tea - Recreational Drug Use Recreational Drug Use: No ED ROS GENERAL - Review of Systems Review Of Systems: Comprehensive ROS is negative, except as noted in HPI. ED EXAM, GENERAL - Physical Exam Exam: See Below (See dictation) Course - Vital Signs Last Recorded V/S: Last Vital Signs Temp 96.8 F L 04/22/20 15:11 Pulse 90 04/22/20 15:11 Resp 18 04/22/20 15:11 BP 129/67 04/22/20 15:11 Pulse Ox 98 04/22/20 15:11 - Orders/Labs/Meds Orders: Active Orders 24 hr Category Date Time Status EKG Documentation Completion [RC] STAT Care 04/22/20 15:20 Active CULTURE URINE [RM] Stat Lab 04/22/20 17:10 Received Labs: Laboratory Tests 04/22/20 04/22/20 04/22/20 Range/Units 15:45 15:45 15:45 WBC 9.11 (4.0-11.0) K/uL RBC 4.16 L (4.30-5.90) M/uL Hgb 11.7 L (12.0-16.0) g/dL Hct 35.6 L (36.0-46.0) % MCV 85.6 (80.0-98.0) fL MCH 28.1 (27.0-32.0) pg MCHC 32.9 (31.0-37.0) g/dL RDW Std Deviation 43.9 (28.0-62.0) fl RDW Coeff of Donna 14 (11.0-15.0) % Plt Count 347 (150-400) K/uL MPV 10.20 (7.40-12.00) fL Neut % (Auto) 53.8 (48.0-80.0) % Lymph % (Auto) 37.0 (16.0-40.0) % Faulk % (Auto) 7.6 (0.0-15.0) % Eos % (Auto) 1.4 (0.0-7.0) % Baso % (Auto) 0.2 (0.0-1.5) % Neut # (Auto) 4.9 (1.4-5.7) K/uL Lymph # (Auto) 3.4 H (0.6-2.4) K/uL Faulk # (Auto) 0.7 (0.0-0.8) K/uL Eos # (Auto) 0.1 (0.0-0.7) K/uL Baso # (Auto) 0.0 (0.0-0.1) K/uL Nucleated RBC % 0.0 /100WBC Nucleated RBCs # 0 K/uL Lactate 1.4 (0.20-2.00) mmol/L Sodium 136 (136-145) mmol/L Potassium 3.9 (3.5-5.1) mmol/L Chloride 101 (98-107) mmol/L Carbon Dioxide 23.9 (21.0-32.0) mmol/L BUN 12 (7.0-18.0) mg/dL Creatinine 0.8 (0.6-1.0) mg/dL Est Cr Clr Drug Dosing 76.68 mL/min Estimated GFR (MDRD) > 60.0 ml/min Glucose 117 H (74-106) mg/dL Calcium 9.0 (8.5-10.1) mg/dL Total Bilirubin 0.3 (0.2-1.0) mg/dL AST 19 (15-37) IU/L ALT 31 (14-63) IU/L Alkaline Phosphatase 87 (46-116) U/L Troponin I < 0.050 (0.000-0.056) ng/mL Total Protein 7.2 (6.4-8.2) g/dL Albumin 3.3 L (3.4-5.0) g/dL Globulin 3.9 (2.6-4.0) g/dL Albumin/Globulin Ratio 0.9 (0.9-1.6) Urine Color Urine Appearance Urine pH (5.0-8.0) Ur Specific Raymond (1.001-1.035) Urine Protein (NEGATIVE) mg/dL Urine Glucose (UA) (NEGATIVE) mg/dL Urine Ketones (NEGATIVE) mg/dL Urine Occult Blood (NEGATIVE) Urine Nitrite (NEGATIVE) Urine Bilirubin (NEGATIVE) Urine Urobilinogen (<2.0) EU/dL Ur Leukocyte Esterase (NEGATIVE) Urine RBC (0-2/HPF) Urine WBC (0-5/HPF) Ur Epithelial Cells (NONE-FEW) Amorphous Sediment (NEGATIVE) Urine Bacteria (NEGATIVE) Urine Mucus (NONE-MOD) 04/22/20 Range/Units 17:10 WBC (4.0-11.0) K/uL RBC (4.30-5.90) M/uL Hgb (12.0-16.0) g/dL Hct (36.0-46.0) % MCV (80.0-98.0) fL MCH (27.0-32.0) pg MCHC (31.0-37.0) g/dL RDW Std Deviation (28.0-62.0) fl RDW Coeff of Donna (11.0-15.0) % Plt Count (150-400) K/uL MPV (7.40-12.00) fL Neut % (Auto) (48.0-80.0) % Lymph % (Auto) (16.0-40.0) % Faulk % (Auto) (0.0-15.0) % Eos % (Auto) (0.0-7.0) % Baso % (Auto) (0.0-1.5) % Neut # (Auto) (1.4-5.7) K/uL Lymph # (Auto) (0.6-2.4) K/uL Faulk # (Auto) (0.0-0.8) K/uL Eos # (Auto) (0.0-0.7) K/uL Baso # (Auto) (0.0-0.1) K/uL Nucleated RBC % /100WBC Nucleated RBCs # K/uL Lactate (0.20-2.00) mmol/L Sodium (136-145) mmol/L Potassium (3.5-5.1) mmol/L Chloride (98-107) mmol/L Carbon Dioxide (21.0-32.0) mmol/L BUN (7.0-18.0) mg/dL Creatinine (0.6-1.0) mg/dL Est Cr Clr Drug Dosing mL/min Estimated GFR (MDRD) ml/min Glucose (74-106) mg/dL Calcium (8.5-10.1) mg/dL Total Bilirubin (0.2-1.0) mg/dL AST (15-37) IU/L ALT (14-63) IU/L Alkaline Phosphatase (46-116) U/L Troponin I (0.000-0.056) ng/mL Total Protein (6.4-8.2) g/dL Albumin (3.4-5.0) g/dL Globulin (2.6-4.0) g/dL Albumin/Globulin Ratio (0.9-1.6) Urine Color YELLOW Urine Appearance CLEAR Urine pH 6.0 (5.0-8.0) Ur Specific Raymond 1.025 (1.001-1.035) Urine Protein NEGATIVE (NEGATIVE) mg/dL Urine Glucose (UA) NEGATIVE (NEGATIVE) mg/dL Urine Ketones NEGATIVE (NEGATIVE) mg/dL Urine Occult Blood NEGATIVE (NEGATIVE) Urine Nitrite POSITIVE H (NEGATIVE) Urine Bilirubin NEGATIVE (NEGATIVE) Urine Urobilinogen 0.2 (<2.0) EU/dL Ur Leukocyte Esterase NEGATIVE (NEGATIVE) Urine RBC 0-2 (0-2/HPF) Urine WBC 2-3 (0-5/HPF) Ur Epithelial Cells OCCASIONAL (NONE-FEW) Amorphous Sediment FEW (NEGATIVE) Urine Bacteria FEW (NEGATIVE) Urine Mucus FEW (NONE-MOD) Meds: Medications Discontinued Medications Generic Name Dose Route Start Last Admin Trade Name Freq PRN Reason Stop Dose Admin Sodium Chloride 1,000 mls @ 999 mls/hr 04/22/20 15:20 04/22/20 16:46 Normal Saline IV 04/22/20 16:20 999 mls/hr STAT ONE Administration Ketorolac Tromethamine 30 mg 04/22/20 16:43 04/22/20 16:47 Toradol IVPUSH 04/22/20 16:44 30 mg ONETIME ONE Administration Departure - Departure Time of Disposition: 17:38 Disposition: Home, Self-Care 01 Clinical Impression: Sinus headache UTI (urinary tract infection) Qualifiers: Urinary tract infection type: acute cystitis Hematuria presence: with hematuria Qualified Code(s): N30.01 - Acute cystitis with hematuria - Discharge Information Instructions: Urinary Tract Infection, Adult, [id number] Referrals: Anika Sanches DIRECTOR OF INSTITUTIONAL RESEARCH [Primary Care Provider] - Forms: ED Department Discharge Additional Instructions: The following information is given to patients seen in the emergency department who are being discharged to home. This information is to outline your options for follow-up care. We provide all patients seen in our emergency department with a follow-up referral. The need for follow-up, as well as the timing and circumstances, are variable depending upon the specifics of your emergency department visit. If you don't have a primary care physician on staff, we will provide you with a referral. We always advise you to contact your personal physician following an emergency department visit to inform them of the circumstance of the visit and for follow-up with them and/or the need for any referrals to a consulting specialist. The emergency department will also refer you to a specialist when appropriate. This referral assures that you have the opportunity for follow-up care with a specialist. All of these measure are taken in an effort to provide you with optimal care, which includes your follow-up. Under all circumstances we always encourage you to contact your private physician who remains a resource for coordinating your care. When calling for follow-up care, please make the office aware that this follow-up is from your recent emergency room visit. If for any reason you are refused follow-up, please contact the [facility] Emergency Department at and asked to speak to the emergency department charge nurse. [facility] [address] [place] [id number] [facility] [address] [place] [id number] Thank you for choosing the [facility] emergency department in [place] for your medical needs today. It was a pleasure caring for you. Today you were seen in the emergency department for feeling unwell with recent COVID- 19 diagnosis. 1. Today your lab work was normal with the exception of a UTI. Will give you an antibiotic that will treat UTI and sinusitis (for your sinus pressure). Normal EKG and chest x-ray. 2. Increase your oral fluids. Alternate Tylenol and Ibuprofen for pain management. Try Some Mucinex for your sinus pressure. 3. We encourage you to follow up with your primary care provider in the next few days for re-evaluation and further care/management. If your symptoms should worsen, new symptoms develop or any of the signs and symptoms we discussed should arise please return to the emergency room or call 911 (if needed). Sepsis Event Note (ED) - Evaluation Sepsis Screening Result: No Definite Risk - Focused Exam Vital Signs: Vital Signs Temp Pulse Resp BP Pulse Ox 04/22/20 15:11 96.8 F L 90 18 129/67 98 - My Orders Last 24 Hours: My Active Orders 04/22/20 15:20 EKG Documentation Completion [RC] STAT 04/22/20 17:10 CULTURE URINE [RM] Stat - Assessment/Plan Last 24 Hours: My Active Orders 04/22/20 15:20 EKG Documentation Completion [RC] STAT 04/22/20 17:10 CULTURE URINE [RM] Stat
--- NOTE | 2020-04-22 16:03 | PCM.SN.2 ---
- Free Text/Narrative Note: EG done at 1536 hrs. and read at 1601. Sinus rhythm heart rate 85 CT 130 QT 438 [place] 48 late transition R wave prior for comparison 03/02/2020 and there is no change. Impression no acute injury
--- NOTE | 2020-04-22 16:17 | CR ---
INDICATION: Chest pain and SOB. TECHNIQUE: Upright portable AP image of the chest. COMPARISON: 05/20/2019. FINDINGS: Lungs and pleural spaces clear. Heart, mediastinum and pulmonary vessels normal. No significant osseous abnormality. IMPRESSION: Negative chest. Dictated by Michael Lunsford MD @ Apr 22 2020 4:15PM Signed by Dr. Michael Lunsford @ Apr 22 2020 4:16PM
[2020-04-22 16:26] LABS: BLOOD UREA NITROGEN,BUN 12 mg/dL (7.0-18.0); CARBON DIOXIDE,CO2 23.9 mmol/L (21.0-32.0); CHLORIDE,CL 101 mmol/L (98-107); GLUCOSE RANDOM 117 mg/dL (74-106); POTASSIUM,K 3.9 mmol/L (3.5-5.1); SODIUM,NA 136 mmol/L (136-145)
[2020-04-22] MEDS ORDERED: Ketorolac 30 MG/ML SDV IVPUSH ONE (16:43)
[2020-04-22] MEDS ORDERED: Amoxicillin/Clavulanate K 875-125 MG Tab PO ONE (17:40)
== END 2020-04-22 18:00 | disposition home or self-care (01) ==
LOC: MW.ED 14:59
DX: R51.9 Headache, unspecified (principal); N30.01 Acute cystitis with hematuria; Z79.899 Other long term (current) drug therapy
CPT/HCPCS: 71045; 80053; 81001; 83605; 84484; 85025; 87086; 93005; 96374; 99284; A9270; J1885; J7030

== ENCOUNTER 2020-06-17 11:23 | Day surgery (SDC) | payer MEDICAID ==
[2020-06-17] MEDS ORDERED: Ropivacaine 0.5% 5 MG/ML 30 ML SDV INJECT ONE (12:30)
[2020-06-17] MEDS ORDERED: Lidocaine 2% 5 ML SDV INJECT ONE (12:30)
[2020-06-17] MEDS ORDERED: Iopamidol 200-M 10 ML vial ITHECAL ONE (12:30)
[2020-06-17] MEDS ORDERED: Betamethasone Acetate/Betamethasone Sod Phosphate 30 MG/5 ML MDV EPIDUR ONE (12:30)
--- NOTE | 2020-06-17 17:04 | OR ---
DATE OF PROCEDURE: 06/17/2020 PRIMARY SURGEON: Brittany Triana DO LEAD CASTER HELPER: OR staff present: 1. Donovan Ramos RT. 2. Ascencion De Leon RN. 3. Milad Lopez RN WOUND CLASS: I. PREOPERATIVE DIAGNOSES: 1. Lumbar degenerative disk disease, L4-5 and L5-S1. 2. Lumbar spondylosis. 3. Chronic low back pain. 4. Lumbosacral radiculopathy, L4-5, bilateral lower extremities. POSTOPERATIVE DIAGNOSES: 1. Lumbar degenerative disk disease, L4-5 and L5-S1. 2. Lumbar spondylosis. 3. Chronic low back pain. 4. Lumbosacral radiculopathy, L4-5, bilateral lower extremities. PROCEDURES PERFORMED: 1. Right L4 transforaminal epidural steroid injection. 2. Fluoroscopic guidance for needle placement. 3. Local with oral Valium for sedation. SCREENING QUESTIONS: The patient answered "no" to all of the following questions: 1. Are you allergic to iodine, Betadine or latex? 2. Do you have a bleeding disorder? 3. Do you have any joint replacements, heart valve replacements, or a pacemaker? 4. Are you allergic to anti-inflammatories or blood thinners? 5. Do you have any current local or systemic infections? DESCRIPTION OF PROCEDURE: The patient had the procedure thoroughly explained including risks, benefits and alternatives. Consent was signed in my clinic indicating understanding and willingness to proceed. The patient presented to [facility] [place] where the patient was escorted to the dressing room to disrobe and change into a hospital gown. Preoperative vital signs were taken and stable. The patient reported that Valium was taken prior to the procedure. The patient was brought to the procedure room and placed in the prone position on the table. A pillow was placed under the abdomen in order to flatten the lumbar lordosis. The back was prepped with ChloraPrep and sterilely draped. All personnel in the operating room were dressed in appropriate attire including surgical scrubs, head and shoe covers. This was to ensure sterility while in the treatment room. During the time fluoroscopy was in use, all personnel in the operating room wore lead blackburn with thyroid collars. Sterile technique was used during the procedure. The fluoroscope was placed for the right L4 transforaminal epidural steroid injection. There was no sign of infection at the skin site for needle insertion. The skin was anesthetized with 2% lidocaine with a 27 gauge 1-1/2 inch needle. Then, a 22 gauge 3-1/2 inch spinal needle, advanced to the right L4. Under direct fluoroscopic guidance needle position was verified in three views; AP, oblique and lateral, with 0.2 cubic centimeters increments of Isovue- 200 dye. No intravascular flow pattern was observed under live fluoroscopy. Then 12 milligrams of Celestone and local mixture was slowly injected after negative aspiration of heme, cerebrospinal fluid and no paresthesias were noted. The needle was cleared prior to removal from the skin. No adverse reactions were noted. The patient was brought to the recovery room awake and in good condition by my staff. The patient was monitored and discharge instructions were given after a brief stay in the recovery area. Both oral and written discharge and follow up instructions were given. The patient will follow up in the clinic in 3-4 weeks post procedure to evaluate the efficacy. The patient verbalized understanding including understanding of those signs and symptoms that would require emergency care and knows how to contact the office if there are any problems or questions in the meantime. PREOPERATIVE PAIN: 8/10. POSTOPERATIVE PAIN: 0/10. FOLLOWUP: In the Pain Clinic in 3 weeks. HOGYOHANA / CARLEE /[id number] DANTE
== END 2020-06-17 13:35 ==
LOC: MW.SDS 11:23
PROVIDERS: ATTEND Anesthesiology
DX: G89.29 Other chronic pain (principal); M47.26 Other spondylosis with radiculopathy, lumbar region; M51.16 Intervertebral disc disorders with radiculopathy, lumbar region; M51.17 Intervertebral disc disorders with radiculopathy, lumbosacral region; M47.27 Other spondylosis with radiculopathy, lumbosacral region; J45.909 Unspecified asthma, uncomplicated; M13.0 Polyarthritis, unspecified; Z79.899 Other long term (current) drug therapy; Z98.890 Other specified postprocedural states; Z87.891 Personal history of nicotine dependence
CPT/HCPCS: 64483; 81025; J0702; J2795; Q9966

== ENCOUNTER 2020-07-29 00:02 | Emergency (ER) | payer MEDICAID ==
[2020-07-29] MEDS ORDERED: Sodium Chloride 0.9% 2.5 ML Syringe FLUSH PRN (00:17)
[2020-07-29] MEDS ORDERED: HYDROmorphone 1 MG/ML Syringe IVPUSH ONE (00:17)
[2020-07-29] MEDS ORDERED: Ondansetron 4 MG/2 ML SDV IVPUSH ONE (00:17)
[2020-07-29] MEDS ORDERED: Ketorolac 15 MG/ML SDV IVPUSH ONE (00:17)
[2020-07-29] MEDS ORDERED: Sodium Chloride 0.9% 1,000 ML IV ONE (00:17)
[2020-07-29] MEDS ORDERED: Sodium Chloride 0.9% 10 ML Syringe FLUSH PRN (00:17)
[2020-07-29 00:41] LABS: BLOOD UREA NITROGEN,BUN 12 mg/dL (7.0-18.0); CHLORIDE,CL 100 mmol/L (98-107); GLUCOSE RANDOM 94 mg/dL (74-106); POTASSIUM,K 4.2 mmol/L (3.5-5.1); SODIUM,NA 135 mmol/L (136-145)
[2020-07-29 00:45] LABS: CARBON DIOXIDE,CO2 26.2 mmol/L (21.0-32.0)
[2020-07-29] MEDS ORDERED: Iopamidol 755 MG/ML 500 ML Multipack Bottle IVPUSH STA (01:11)
--- NOTE | 2020-07-29 01:31 | CT ---
INDICATION: Right sided chest pain, history COVID-19 in April TECHNIQUE: CT chest with i.v. contrast using pulmonary angiographic technique. Coronal and sagittal reformats were obtained. CONTRAST: 75 mL Isovue 370 COMPARISON: None FINDINGS: Cardiovascular: The pulmonary arteries are unremarkable in enhancement with no evidence of acute pulmonary embolism. The main pulmonary artery is near the upper limits of normal in size measuring 2.8 cm. The heart has an unremarkable appearance and size. No sign of aneurysm in the thoracic aorta. Mediastinum: No mass or adenopathy seen. Lung: Mild mosaic attenuation is present the lower lobes bilaterally which may be due to small airways disease. Pleura and pericardium: No sign of pleural effusion seen. No significant pericardial effusion is present. Chest wall and axilla: No mass or adenopathy seen. Bone: Unremarkable for age. Upper abdomen: Unremarkable. IMPRESSION: 1. No CT evidence of acute pulmonary emboli seen. Dictated by Ab Tian MD @ 07/29/2020 1:30:54 AM Please note that all CT scans at this facility use dose modulation, iterative reconstruction, and/or weight-based dosing when appropriate to reduce radiation dose to as low as reasonably achievable. Dictated by: Ab Tian MD @ 07/29/2020 01:31:00 (Electronically Signed)
[2020-07-29] MEDS ORDERED: Alum Hydrox/Mag Hydrox/Simeth 15 ML, Lidocaine 2% 5 ML PO ONE ×2 (01:54)
--- NOTE | 2020-07-29 01:56 | EDM.PDOC ---
ED HPI GENERAL MEDICAL PROBLEM - General Chief Complaint: Chest Pain Stated Complaint: BURNING PAIN IN CHEST Time Seen by Provider: 07/29/20 00:36 - History of Present Illness INITIAL COMMENTS - FREE TEXT/NARRATIVE: HISTORY AND PHYSICAL: History of present illness: This is a 45-year-old female with a history significant for Sjogren's disease, rheumatoid arthritis, lupus, diagnosed with coronavirus in April 2020, who presents ER today secondary to right-sided chest burning sensation that started earlier today and has been constant since. Patient denies any recent fevers, shakes, chills, nausea, vomiting, diarrhea, dysuria, frequency, urgency, pain rating down her arms or back. Patient describes the pain as a burning sensation over her right anterior chest wall. Patient denies any exacerbating or relieving factors. Patient denies any history of hypertension, diabetes, liver, lung, kidney problems. Patient denies any tobacco alcohol or drugs. Patient denies any increased discomfort with exertion, rest, meals. Review of systems: As per history of present illness and below otherwise all systems reviewed and negative. Past medical history: As per history of present illness and as reviewed below otherwise noncontributory. Surgical history: As per history of present illness and as reviewed below otherwise noncontributory. Social history: No reported history of drug or alcohol abuse. Family history: As per history of present illness and as reviewed below otherwise noncontributory. Physical exam: This patient was seen and evaluated during the 2019 SARS-CoV-2 novel coronavirus pandemic period. Community viral transmission is ongoing at time of this encounter and the emergency department is operating under pandemic response procedures. Constitutional: Patient is oriented to person, place, and time. Appears well- developed and well-nourished. No distress. HEENT: Moist mucous membranes Head: Normocephalic and atraumatic Eyes: Right eye exhibits no discharge. Left eye exhibits no discharge. No scleral icterus Neck: Normal range of motion. No tracheal deviation present. Cardiovascular: Normal rate and regular rhythm. Pulmonary: Effort normal, no respiratory distress. Abdominal: No distention Musculoskeletal: Normal range of motion Neurologic: Alert and oriented to person, place and time. Skin: [place], warm and dry. Psychiatric: Normal mood and affect. Behavior is normal. Judgment and thought content normal. Nursing note and vital signs have been reviewed Diagnostics: CBC, CMP, troponin negative. CTA of chest reveals no evidence of acute pathology. No pulmonary embolism. EKG: As interpreted by ER physician: Yovani: Nonspecific ST-T wave abnormalities Normal axis No evidence of ST elevation [place] Normal sinus rhythm heart rate of 85 Therapeutics: [] Assessment and plan: This is a 45-year-old female with a history significant for lupus, Sjogren's, coronavirus who presents ER today with right-sided chest wall burning sensation. Patient's cardiac evaluation is extremely low risk for cardiac etiology of her symptoms. Patient's labs and CTA are all normal. Etiology of the patient's discomfort is unclear however given her normal labs and the location of the discomfort it appears extremely unlikely that this is related to a cardiac source. Patient was given Dilaudid and Toradol initially for pain of possibly secondary to her Sjogren's or pleurisy. Patient reports that she did get some relief initially from the medication however she feels like the pain is starting come back. We will try a GI cocktail on her. At this time however patient is stable for discharge and further outpatient evaluation by her primary care physician. Reassessment at the time of disposition demonstrates that the patient is in no acute distress. The patient has remained stable throughout the entire ED visit and is without objective evidence for acute process requiring urgent intervention or hospitalization. The patient is stable for discharge, counseling is provided as documented above, discussed symptomatic treatment and specific conditions for return. I have spoken with the patient/caregiver and discussed todays findings, in addition to providing specific details for the plan of care. Questions are answered and there is agreement with the plan. Definitive disposition and diagnosis as appropriate pending reevaluation and review of above. chest Pain Score (Numeric/FACES): 7 - Related Data Allergies Allergy/AdvReac Type Severity Reaction Status Date / Time No Known Allergies Allergy Verified 07/29/20 00:12 Home Meds: Home Meds Hydroxychloroquine [Plaquenil] 400 mg PO DAILY 04/22/20 [History] Past Medical History HEENT History: Reports: None Cardiovascular History: Reports: None Respiratory History: Reports: None Gastrointestinal History: Reports: None Genitourinary History: Reports: None FRONT EDGER History: Reports: None Musculoskeletal History: Reports: None Neurological History: Reports: None Psychiatric History: Reports: None Endocrine/Metabolic History: Reports: None Hematologic History: Reports: None Immunologic History: Reports: Other (See Below) Other Immunologic History: Sjogrens syndrome Oncologic (Cancer) History: Reports: None Dermatologic History: Reports: Cellulitis - Infectious Disease History Infectious Disease History: Reports: Chicken Pox - Past Surgical History Head Surgeries/Procedures: Reports: None HEENT Surgical History: Reports: None Cardiovascular Surgical History: Reports: None Other Cardiovascular Surgeries/Procedures: hx of heart cath- exploratory Respiratory Surgical History: Reports: None GI Surgical History: Reports: Cholecystectomy, Other (See Below) Other GI Surgeries/Procedures: surgery on abdomen to remove tumor Female Surgical History: Reports: Tubal Ligation Endocrine Surgical History: Reports: None Neurological Surgical History: Reports: None Musculoskeletal Surgical History: Reports: None Oncologic Surgical History: Reports: None Dermatological Surgical History: Reports: None Social & Family History - Family History Family Medical History: No Pertinent Family History - Tobacco Use Tobacco Use Status *Q: Never Tobacco User - Caffeine Use Caffeine Use: Reports: Coffee, Tea - Recreational Drug Use Recreational Drug Use: No ED ROS GENERAL - Review of Systems Review Of Systems: See Below ED EXAM, GENERAL - Physical Exam Exam: See Below Course - Vital Signs Last Recorded V/S: Last Vital Signs Temp 97.7 F 07/29/20 00:09 Pulse 84 07/29/20 01:22 Resp 16 07/29/20 00:09 BP 111/70 07/29/20 00:09 Pulse Ox 95 07/29/20 01:22 - Orders/Labs/Meds Orders: Active Orders 24 hr Category Date Time Status EKG Documentation Completion [RC] AM Care 07/29/20 00:17 Active Sodium Chloride 0.9% [Saline Flush] Med 07/29/20 00:17 Active 10 ml FLUSH ASDIRECTED PRN Sodium Chloride 0.9% [Saline Flush] Med 07/29/20 00:17 Active 2.5 ml FLUSH ASDIRECTED PRN Saline Lock Insert [OM.PC] Stat Oth 07/29/20 00:17 Ordered Medication Orders Sodium Chloride (Sodium Chloride 0.9% 10 Ml Syringe) 10 ml FLUSH ASDIRECTED PRN PRN Reason: Keep Vein Open Last Admin: 07/29/20 00:23 Dose: 10 ml Documented by: ARSEN Sodium Chloride (Sodium Chloride 0.9% 2.5 Ml Syringe) 2.5 ml FLUSH ASDIRECTED PRN PRN Reason: Keep Vein Open Last Admin: 07/29/20 00:23 Dose: 2.5 ml Documented by: ARSEN Labs: Laboratory Tests 07/29/20 07/29/20 Range/Units 00:00 00:00 WBC 5.87 (4.0-11.0) K/uL RBC 4.50 (4.30-5.90) M/uL Hgb 12.4 (12.0-16.0) g/dL Hct 37.6 (36.0-46.0) % MCV 83.6 (80.0-98.0) fL MCH 27.6 (27.0-32.0) pg MCHC 33.0 (31.0-37.0) g/dL RDW Std Deviation 42.5 (28.0-62.0) fl RDW Coeff of Donna 14 (11.0-15.0) % Plt Count 309 (150-400) K/uL MPV 10.80 (7.40-12.00) fL Neut % (Auto) 44.2 L (48.0-80.0) % Lymph % (Auto) 43.6 H (16.0-40.0) % Curry % (Auto) 10.9 (0.0-15.0) % Eos % (Auto) 1.0 (0.0-7.0) % Baso % (Auto) 0.3 (0.0-1.5) % Neut # (Auto) 2.6 (1.4-5.7) K/uL Lymph # (Auto) 2.6 H (0.6-2.4) K/uL Curry # (Auto) 0.6 (0.0-0.8) K/uL Eos # (Auto) 0.1 (0.0-0.7) K/uL Baso # (Auto) 0.0 (0.0-0.1) K/uL Nucleated RBC % 0.0 /100WBC Nucleated RBCs # 0 K/uL Sodium 135 L (136-145) mmol/L Potassium 4.2 (3.5-5.1) mmol/L Chloride 100 (98-107) mmol/L Carbon Dioxide 26.2 (21.0-32.0) mmol/L BUN 12 (7.0-18.0) mg/dL Creatinine 1.3 H (0.6-1.0) mg/dL Est Cr Clr Drug Dosing 47.19 mL/min Estimated GFR (MDRD) 53.7 ml/min Glucose 94 (74-106) mg/dL Calcium 9.5 (8.5-10.1) mg/dL Total Bilirubin 0.2 (0.2-1.0) mg/dL AST 22 (15-37) IU/L ALT 25 (14-63) IU/L Alkaline Phosphatase 90 (46-116) U/L Troponin I < 0.050 (0.000-0.056) ng/mL Total Protein 7.9 (6.4-8.2) g/dL Albumin 3.4 (3.4-5.0) g/dL Globulin 4.5 H (2.6-4.0) g/dL Albumin/Globulin Ratio 0.8 L (0.9-1.6) Meds: Medications Generic Name Dose Route Start Last Admin Trade Name Robbyq PRN Reason Stop Dose Admin Sodium Chloride 10 ml 07/29/20 00:17 07/29/20 00:23 Sodium Chloride 0.9% 10 Ml Syringe FLUSH 10 ml ASDIRECTED PRN Administration Keep Vein Open Sodium Chloride 2.5 ml 07/29/20 00:17 07/29/20 00:23 Sodium Chloride 0.9% 2.5 Ml Syringe FLUSH 2.5 ml ASDIRECTED PRN Administration Keep Vein Open Discontinued Medications Generic Name Dose Route Start Last Admin Trade Name Robbyq PRN Reason Stop Dose Admin Hydromorphone HCl 1 mg 07/29/20 00:17 07/29/20 00:23 Hydromorphone 1 Mg/Ml Syringe IVPUSH 07/29/20 00:18 1 mg ONETIME ONE Administration Sodium Chloride 1,000 mls @ 999 mls/hr 07/29/20 00:17 07/29/20 00:22 Normal Saline IV 07/29/20 01:17 999 mls/hr .Bolus ONE Administration Iopamidol 75 ml 07/29/20 01:11 07/29/20 01:12 Iopamidol 755 Mg/Ml 500 Ml Multipack Bottle IVPUSH 07/29/20 01:12 75 ml ONETIME STA Administration Ketorolac Tromethamine 15 mg 07/29/20 00:17 07/29/20 00:23 Ketorolac 15 Mg/Ml Sdv IVPUSH 07/29/20 00:18 15 mg ONETIME ONE Administration Ondansetron HCl 4 mg 07/29/20 00:17 07/29/20 00:23 Ondansetron 4 Mg/2 Ml Sdv IVPUSH 07/29/20 00:18 4 mg ONETIME ONE Administration Departure - Departure Time of Disposition: 01:55 Disposition: Home, Self-Care 01 Condition: Good Clinical Impression: Nonspecific chest pain - Discharge Information Instructions: Nonspecific Chest Pain, Adult Referrals: Anika Sanches ORDERING BOX OPERATOR [Primary Care Provider] - Additional Instructions: You were seen and evaluated in the ER today secondary to right-sided chest pain. The etiology of your pain is unclear however all the tests that we have conducted in the emergency room has been normal. Please make an appointment to follow-up with your family doctor in the next 1 to 2 days to be reevaluated. They may want to refer you to a meal grinder tender for further cardiac evaluation. Please return to the ER if you start experiencing any new, worsening, or concerning symptoms. The following information is given to patients seen in the emergency department who are being discharged to home. This information is to outline your options for follow-up care. We provide all patients seen in our emergency department with a follow-up referral. The need for follow-up, as well as the timing and circumstances, are variable depending upon the specifics of your emergency department visit. If you don't have a primary care physician on staff, we will provide you with a referral. We always advise you to contact your personal physician following an emergency department visit to inform them of the circumstance of the visit and for follow-up with them and/or the need for any referrals to a consulting specialist. The emergency department will also refer you to a specialist when appropriate. This referral assures that you have the opportunity for follow-up care with a specialist. All of these measure are taken in an effort to provide you with optimal care, which includes your follow-up. Under all circumstances we always encourage you to contact your private physician who remains a resource for coordinating your care. When calling for follow-up care, please make the office aware that this follow-up is from your recent emergency room visit. If for any reason you are refused follow-up, please contact the [facility] Emergency Department at and asked to speak to the emergency department charge nurse. [facility] [address] [place] [address] [facility] [address] [place] [address] Sepsis Event Note (ED) - Evaluation Sepsis Screening Result: No Definite Risk - Focused Exam Vital Signs: Vital Signs Temp Pulse Resp BP Pulse Ox 07/29/20 01:22 84 95 07/29/20 00:09 97.7 F 89 16 111/70 99 - My Orders Last 24 Hours: My Active Orders 07/29/20 00:17 EKG Documentation Completion [RC] AM Sodium Chloride 0.9% [Saline Flush] 10 ml FLUSH ASDIRECTED PRN Sodium Chloride 0.9% [Saline Flush] 2.5 ml FLUSH ASDIRECTED PRN Saline Lock Insert [OM.PC] Stat - Assessment/Plan Last 24 Hours: My Active Orders 07/29/20 00:17 EKG Documentation Completion [RC] AM Sodium Chloride 0.9% [Saline Flush] 10 ml FLUSH ASDIRECTED PRN Sodium Chloride 0.9% [Saline Flush] 2.5 ml FLUSH ASDIRECTED PRN Saline Lock Insert [OM.PC] Stat
== END 2020-07-29 02:21 | disposition home or self-care (01) ==
LOC: MW.ED 00:02
DX: R07.9 Chest pain, unspecified (principal); M06.9 Rheumatoid arthritis, unspecified; Z86.16 Personal history of COVID-19; Z79.899 Other long term (current) drug therapy
CPT/HCPCS: 36415; 71275; 80053; 84484; 85025; 93005; 96374; 96375; 99285; A9270; J1170; J1885; J2405; J7030; Q9967

== ENCOUNTER 2020-09-11 16:23 | Emergency (ER) | payer MEDICAID ==
[2020-09-11] MEDS ORDERED: Bupivacaine 0.5% 10 ML SDV INJECT ONE (17:34)
--- NOTE | 2020-09-11 18:01 | EDM.PDOC ---
ED HPI GENERAL MEDICAL PROBLEM - General Chief Complaint: ENT Problem Stated Complaint: TOOTH PAIN Time Seen by Provider: 09/11/20 17:00 Source of Information: Reports: Patient History Limitations: Reports: No Limitations - History of Present Illness INITIAL COMMENTS - FREE TEXT/NARRATIVE: Patient is a 45-year-old female presents today for right lower tooth pain. Patient has a single tooth on the lower right side that needs to be pulled she cannot see the dentist again in a month. Patient was give antibiotics by previous provider without pain meds. Patient seen today for pain control only. Patient has no fever chills nausea vomiting swelling of the jaw. Lower right tooth Pain Score (Numeric/FACES): 8 - Related Data Allergies Allergy/AdvReac Type Severity Reaction Status Date / Time No Known Allergies Allergy Verified 07/29/20 00:12 Home Meds: Home Meds Hydroxychloroquine [Plaquenil] 400 mg PO DAILY 04/22/20 [History] Past Medical History HEENT History: Reports: None Cardiovascular History: Reports: None Respiratory History: Reports: None Gastrointestinal History: Reports: None Genitourinary History: Reports: None SENIOR ACCOUNTING SPECIALIST History: Reports: None Musculoskeletal History: Reports: None Neurological History: Reports: None Psychiatric History: Reports: None Endocrine/Metabolic History: Reports: None Hematologic History: Reports: None Immunologic History: Reports: Other (See Below) Other Immunologic History: Sjogrens syndrome Oncologic (Cancer) History: Reports: None Dermatologic History: Reports: Cellulitis - Infectious Disease History Infectious Disease History: Reports: Chicken Pox - Past Surgical History Head Surgeries/Procedures: Reports: None HEENT Surgical History: Reports: None Cardiovascular Surgical History: Reports: None Other Cardiovascular Surgeries/Procedures: hx of heart cath- exploratory Respiratory Surgical History: Reports: None GI Surgical History: Reports: Cholecystectomy, Other (See Below) Other GI Surgeries/Procedures: surgery on abdomen to remove tumor Female Surgical History: Reports: Tubal Ligation Endocrine Surgical History: Reports: None Neurological Surgical History: Reports: None Musculoskeletal Surgical History: Reports: None Oncologic Surgical History: Reports: None Dermatological Surgical History: Reports: None Social & Family History - Family History Family Medical History: No Pertinent Family History - Tobacco Use Tobacco Use Status *Q: Never Tobacco User - Caffeine Use Caffeine Use: Reports: Coffee - Recreational Drug Use Recreational Drug Use: No ED ROS ENT - Review of Systems Review Of Systems: See Below Constitutional: Reports: No Symptoms HEENT: Reports: Dental Pain Respiratory: Reports: No Symptoms Endocrine: Reports: No Symptoms GI/Abdominal: Reports: No Symptoms : Reports: No Symptoms Musculoskeletal: Reports: No Symptoms Skin: Reports: No Symptoms Neurological: Reports: No Symptoms Psychiatric: Reports: No Symptoms Hematologic/Lymphatic: Reports: No Symptoms Immunologic: Reports: No Symptoms ED EXAM, ENT - Physical Exam Exam: See Below Exam Limited By: No Limitations General Appearance: Alert, WD/WN, No Apparent Distress Mouth/Throat: No: Normal Gums, Normal Teeth, Dental Abcess, Drooling Respiratory/Chest: No Respiratory Distress Cardiovascular: Normal Peripheral Pulses Neurological: Alert, Oriented ED ENT PROCEDURES - Additional/Other Procedure(s) Other (Free Text) Procedure(s): Digital block with 0.5% with buprovicaine. Was applied to the right lower jaw. No complications were noted. Course - Vital Signs Last Recorded V/S: Last Vital Signs Temp 97.0 F 09/11/20 17:00 Pulse 95 09/11/20 17:00 Resp 18 09/11/20 17:00 BP 134/68 09/11/20 17:00 Pulse Ox 99 09/11/20 17:00 - Orders/Labs/Meds Meds: Medications Discontinued Medications Generic Name Dose Route Start Last Admin Trade Name Leesa PRJulian Reason Stop Dose Admin Bupivacaine HCl 10 ml 09/11/20 17:34 09/11/20 17:55 Bupivacaine 0.5% 10 Ml Sdv INJECT 09/11/20 17:35 10 ml ONETIME ONE Administration Departure - Departure Time of Disposition: 18:00 Disposition: Home, Self-Care 01 Condition: Good Clinical Impression: Dental caries - Discharge Information *PRESCRIPTION DRUG MONITORING PROGRAM REVIEWED*: Not Applicable *COPY OF PRESCRIPTION DRUG MONITORING REPORT IN PATIENT PILAR: Not Applicable Instructions: Tooth Pulling, Care After Referrals: PCP,None [Primary Care Provider] - Additional Instructions: The following information is given to patients seen in the emergency department who are being discharged to home. This information is to outline your options for follow-up care. We provide all patients seen in our emergency department with a follow-up referral. The need for follow-up, as well as the timing and circumstances, are variable depending upon the specifics of your emergency department visit. If you don't have a primary care physician on staff, we will provide you with a referral. We always advise you to contact your personal physician following an emergency department visit to inform them of the circumstance of the visit and for follow-up with them and/or the need for any referrals to a consulting specialist. The emergency department will also refer you to a specialist when appropriate. This referral assures that you have the opportunity for follow-up care with a specialist. All of these measure are taken in an effort to provide you with optimal care, which includes your follow-up. Under all circumstances we always encourage you to contact your private physician who remains a resource for coordinating your care. When calling for follow-up care, please make the office aware that this follow-up is from your recent emergency room visit. If for any reason you are refused follow-up, please contact the [facility] Emergency Department at and asked to speak to the emergency department charge nurse. Please follow up with your primary care physician. If you do not have a primary care physician, see below: [facility] [address] [place] [id number] [facility] [address] [place] [id number] You were seen today for tooth pain. We were able to provide a numbing block to the tooth that should last for the next few hours. We also sent home with pain medication. Have any swelling increased pain fever chills please return to the ED. Sepsis Event Note (ED) - Evaluation Sepsis Screening Result: No Definite Risk - Focused Exam Vital Signs: Vital Signs Temp Pulse Resp BP Pulse Ox 09/11/20 17:00 97.0 F 95 18 134/68 99 - Assessment/Plan Plan: Patient is a 45-year-old female presents today for dental pain. We were able to do a dental block. Patient will also be sent home with pain medication. Patient stable for discharge home.
== END 2020-09-11 18:31 | disposition home or self-care (01) ==
LOC: MW.ED 16:23
DX: K02.9 Dental caries, unspecified (principal)
CPT/HCPCS: 64400; 99282; J3490

== ENCOUNTER 2020-09-12 13:54 | Emergency (ER) | payer MEDICAID ==
--- NOTE | 2020-09-12 14:13 | EDM.PDOC ---
ED HPI GENERAL MEDICAL PROBLEM - General Chief Complaint: ENT Problem Stated Complaint: TOOTH PAIN Time Seen by Provider: 09/12/20 13:55 Source of Information: Reports: Patient History Limitations: Reports: No Limitations - History of Present Illness INITIAL COMMENTS - FREE TEXT/NARRATIVE: Patient is a 45-year-old female presents today for right lower jaw pain and swelling. Patient was seen here yesterday for the pain and was given a block to help with the pain. Patient came today because she has some swelling became nervous. We told the patient is like related to the tooth need to come out and possible dental abscess. Patient has no difficulty swallowing or breathing. Patient was started on antibiotics 2 days ago by outside clinic and given otherwise. Patient scheduled see a dentist at the end of the month. Patient has no other complaints. 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 Musculoskeletal History: Reports: None Neurological History: Reports: None Psychiatric History: Reports: None Endocrine/Metabolic History: Reports: None Hematologic History: Reports: None Immunologic History: Reports: Other (See Below) Other Immunologic History: Sjogrens syndrome Oncologic (Cancer) History: Reports: None Dermatologic History: Reports: Cellulitis - Infectious Disease History Infectious Disease History: Reports: Chicken Pox - Past Surgical History Head Surgeries/Procedures: Reports: None HEENT Surgical History: Reports: None Cardiovascular Surgical History: Reports: None Other Cardiovascular Surgeries/Procedures: hx of heart cath- exploratory Respiratory Surgical History: Reports: None GI Surgical History: Reports: Cholecystectomy, Other (See Below) Other GI Surgeries/Procedures: surgery on abdomen to remove tumor Female Surgical History: Reports: Tubal Ligation Endocrine Surgical History: Reports: None Neurological Surgical History: Reports: None Musculoskeletal Surgical History: Reports: None Oncologic Surgical History: Reports: None Dermatological Surgical History: Reports: None Social & Family History - Family History Family Medical History: No Pertinent Family History - Caffeine Use Caffeine Use: Reports: Coffee ED ROS ENT - Review of Systems Review Of Systems: See Below Constitutional: Reports: No Symptoms HEENT: Reports: Dental Pain Respiratory: Reports: No Symptoms Endocrine: Reports: No Symptoms GI/Abdominal: Reports: No Symptoms : Reports: No Symptoms Musculoskeletal: Reports: No Symptoms Skin: Reports: No Symptoms Neurological: Reports: No Symptoms Psychiatric: Reports: No Symptoms Hematologic/Lymphatic: Reports: No Symptoms Immunologic: Reports: No Symptoms ED EXAM, ENT - Physical Exam Exam: See Below Exam Limited By: No Limitations General Appearance: Alert, WD/WN, No Apparent Distress Nose: Normal Inspection Mouth/Throat: Normal Inspection, Dental Abcess, Dental Pain. No: Normal Gums Respiratory/Chest: No Respiratory Distress Extremities: Normal Inspection Neurological: Alert, Oriented, Normal Cognition, Normal Gait Departure - Departure Time of Disposition: 14:13 Disposition: Home, Self-Care 01 Condition: Good Clinical Impression: Pain, dental - Discharge Information *PRESCRIPTION DRUG MONITORING PROGRAM REVIEWED*: Not Applicable *COPY OF PRESCRIPTION DRUG MONITORING REPORT IN PATIENT PILAR: Not Applicable Instructions: Dental Abscess Referrals: PCP,None [Primary Care Provider] - Additional Instructions: The following information is given to patients seen in the emergency department who are being discharged to home. This information is to outline your options for follow-up care. We provide all patients seen in our emergency department with a follow-up referral. The need for follow-up, as well as the timing and circumstances, are variable depending upon the specifics of your emergency department visit. If you don't have a primary care physician on staff, we will provide you with a referral. We always advise you to contact your personal physician following an emergency department visit to inform them of the circumstance of the visit and for follow-up with them and/or the need for any referrals to a consulting specialist. The emergency department will also refer you to a specialist when appropriate. This referral assures that you have the opportunity for follow-up care with a specialist. All of these measure are taken in an effort to provide you with optimal care, which includes your follow-up. Under all circumstances we always encourage you to contact your private physician who remains a resource for coordinating your care. When calling for follow-up care, please make the office aware that this follow-up is from your recent emergency room visit. If for any reason you are refused follow-up, please contact the [facility] Emergency Department at and asked to speak to the emergency department charge nurse. Please follow up with your primary care physician. If you do not have a primary care physician, see below: [facility] [address] [place] [address] My [facility] [address] [place] [address] You are seen today for tooth pain. You have some swelling which can be caused by the dental abscess. You start antibiotics. Need to keep taking antibiotics if the swelling continues to to increase please return to the ED. Otherwise continue take antibiotics and follow-up with dental dental week. - Assessment/Plan Plan: Patient is a 45-year-old female presents today for right lower jaw pain. Patient was seen by me yesterday for same complaint. Patient has some swelling this morning. On exam patient has minimal swelling has no SOB or difficulty swallowing. Patient looks well tolerating secretions. Patient is already on antibiotics outside facility recommend patient continue antibiotics and will give strict return precautions. Patient with follow-up with dental for possible extraction
== END 2020-09-12 14:25 | disposition home or self-care (01) ==
LOC: MW.ED 13:54
DX: K08.89 Other specified disorders of teeth and supporting structures (principal)
CPT/HCPCS: 99282

== ENCOUNTER 2020-09-22 18:16 | Emergency (ER) | payer MEDICAID ==
--- NOTE | 2020-09-22 18:35 | EDM.PDOC ---
ED HPI GENERAL MEDICAL PROBLEM - General Chief Complaint: Respiratory Problem Stated Complaint: COUGH Time Seen by Provider: 09/22/20 18:35 Source of Information: Reports: Patient History Limitations: Reports: No Limitations - History of Present Illness INITIAL COMMENTS - FREE TEXT/NARRATIVE: HISTORY AND PHYSICAL: History of present illness: Patient is a 45-year-old female who presents to the emergency room with complaints of a harsh dry nonproductive cough over the past few days. She reports she had been evaluated at an outside clinic and has had 2 separate antibiotics, one oral which she completed and an IM injection today. She was also given Tessalon Perles which have not alleviated her discomfort. Patient denies any fever, chills, headache, change in vision, syncope or near syncope. Denies any chest pain, back pain, shortness of breath or hemoptysis. Denies any abdominal pain, nausea, vomiting, diarrhea, constipation or dysuria. No concern for . Patient has been eating and drinking appropriately. Review of systems: As per history of present illness and below otherwise all systems reviewed and negative. Past medical history: As per history of present illness and as reviewed below otherwise noncontributory. Surgical history: As per history of present illness and as reviewed below otherwise noncontributory. Social history: See social history for further information Family history: As per history of present illness and as reviewed below otherwise noncontributory. Physical exam: General: Well developed and well nourished. Alert and orientated x 3. Nontoxic in appearance and in no acute distress. Vital signs are stable and have been reviewed by me. Nursing notes were reviewed. HEENT: Atraumatic, normocephalic, pupils equal and reactive bilaterally, negative for conjunctival pallor or scleral icterus, mucous membranes moist, TMs normal bilaterally, throat clear, neck supple, nontender, trachea midline. No drooling or trismus noted. No meningeal signs. No hot potato voice noted. Lungs: Clear to auscultation bilaterally. No wheezes, rales, or rhonchi. Chest nontender. Normal work of breathing, no accessory muscles used. Dry harsh nonproductive cough. Heart: S1S2, regular rate and rhythm without overt murmur, gallops, or rubs. No JVD. No peripheral edema Abdomen: Soft, nondistended, nontender. Skin: Intact, warm, dry. No lesions or rashes noted. Hematologic: No petechiae or purpra. Mucosa appropriate color and normal nail bed color and refill. Extremities: Atraumatic, moves all extremities per self without difficulty or deficits, negative for cords or calf pain. Neurovascular unremarkable. Neuro: Awake, alert, oriented. Cranial nerves II through XII unremarkable. Cerebellum unremarkable. Motor and sensory unremarkable throughout. Exam nonfocal. Psychiatric: Mood and affect are appropriate. Normal thought process. Answering questions appropriately. Notes: *This patient was seen and evaluated during the 2019 SARS-CoV-2 novel coronavirus pandemic period. Community viral transmission is ongoing at time of this encounter and the emergency department is operating under pandemic response procedures. I have talked with the patient about today's findings, in addition to providing specific details for plan of care. Reassessment at the time of disposition demonstrates that the patient is in no acute distress. The patient is stable for discharge, counseling was provided and we discussed in great detail signs and symptoms that would prompt them to return to the Emergency Department. Medication, follow up and supportive care measures were reviewed and discussed. Voices understanding and is agreeable to plan of care. Denies any further questions or concerns at this time. Diagnostics: CXR, COVID-19 Therapeutics: None Prescription: Cheratussin, Predisone Impression: Bronchitis Plan: 1. You were evaluated today on an emergent basis. Your chest x-ray is unremarkable. 2. You can alternate Tylenol and ibuprofen as needed for pain and fever management. 3. We encourage you to follow up with your primary care provider and/or recommended specialist in the next few days for re-evaluation and further care/management. 4. If your symptoms should worsen, new symptoms develop or any of the signs and symptoms we discussed should arise please return to the emergency room or call 911 (if needed). Definitive disposition and diagnosis as appropriate pending reevaluation and review of above. 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 Musculoskeletal History: Reports: None Neurological History: Reports: None Psychiatric History: Reports: None Endocrine/Metabolic History: Reports: None Hematologic History: Reports: None Immunologic History: Reports: Other (See Below) Other Immunologic History: Sjogrens syndrome Oncologic (Cancer) History: Reports: None Dermatologic History: Reports: Cellulitis - Infectious Disease History Infectious Disease History: Reports: Chicken Pox - Past Surgical History Head Surgeries/Procedures: Reports: None HEENT Surgical History: Reports: None Cardiovascular Surgical History: Reports: None Other Cardiovascular Surgeries/Procedures: hx of heart cath- exploratory Respiratory Surgical History: Reports: None GI Surgical History: Reports: Cholecystectomy, Other (See Below) Other GI Surgeries/Procedures: surgery on abdomen to remove tumor Female Surgical History: Reports: Tubal Ligation Endocrine Surgical History: Reports: None Neurological Surgical History: Reports: None Musculoskeletal Surgical History: Reports: None Oncologic Surgical History: Reports: None Dermatological Surgical History: Reports: None Social & Family History - Family History Family Medical History: No Pertinent Family History - Caffeine Use Caffeine Use: Reports: None ED ROS GENERAL - Review of Systems Review Of Systems: Comprehensive ROS is negative, except as noted in HPI. ED EXAM, GENERAL - Physical Exam Exam: See Below (See dictation) Course - Vital Signs Last Recorded V/S: Last Vital Signs Temp 97.5 F 09/22/20 18:33 Pulse 82 09/22/20 18:33 Resp 20 09/22/20 18:33 BP 129/63 09/22/20 18:33 Pulse Ox 99 09/22/20 18:33 - Orders/Labs/Meds Labs: Laboratory Tests 09/22/20 Range/Units 18:51 Influenza Type A RNA NEGATIVE (NEGATIVE) Influenza Type B RNA NEGATIVE (NEGATIVE) SARS-CoV-2 RNA (TRISHA) NEGATIVE (NEGATIVE) Departure - Departure Time of Disposition: 20:00 Disposition: Home, Self-Care 01 Clinical Impression: Bronchitis - Discharge Information Instructions: Cough, Adult, [id number] Referrals: Maria Mejía NP [Primary Care Provider] - Forms: ED Department Discharge Additional Instructions: The following information is given to patients seen in the emergency department who are being discharged to home. This information is to outline your options for follow-up care. We provide all patients seen in our emergency department with a follow-up referral. The need for follow-up, as well as the timing and circumstances, are variable depending upon the specifics of your emergency department visit. If you don't have a primary care physician on staff, we will provide you with a referral. We always advise you to contact your personal physician following an emergency department visit to inform them of the circumstance of the visit and for follow-up with them and/or the need for any referrals to a consulting specialist. The emergency department will also refer you to a specialist when appropriate. This referral assures that you have the opportunity for follow-up care with a specialist. All of these measure are taken in an effort to provide you with optimal care, which includes your follow-up. Under all circumstances we always encourage you to contact your private physician who remains a resource for coordinating your care. When calling for follow-up care, please make the office aware that this follow-up is from your recent emergency room visit. If for any reason you are refused follow-up, please contact the [facility] Emergency Department at and asked to speak to the emergency department charge nurse. [facility] [address] [place] [address] [address] Thank you for choosing the [facility] emergency department in [place] for your medical needs today. It was a pleasure caring for you. Today you were seen in the emergency department for cough. 1. You were evaluated today on an emergent basis. Your chest x-ray is unremarkable. 2. You can alternate Tylenol and ibuprofen as needed for pain and fever management. 3. We encourage you to follow up with your primary care provider and/or recomme nded specialist in the next few days for re-evaluation and further care/management. 4. If your symptoms should worsen, new symptoms develop or any of the signs and symptoms we discussed should arise please return to the emergency room or call 911 (if needed). Sepsis Event Note (ED) - Focused Exam Vital Signs: Vital Signs Temp Pulse Resp BP Pulse Ox 09/22/20 18:33 97.5 F 82 20 129/63 99
--- NOTE | 2020-09-22 19:17 | CR ---
INDICATION: pain/sob. prior 20-may-2019 TECHNIQUE: Chest 2 views. COMPARISON: 05/20/19 FINDINGS: Cardiovascular and mediastinum: Heart size and vasculature are normal in caliber and appearance. Mediastinum is within normal limits. Lungs and pleural spaces: Lungs are clear. No sign of infiltrate or mass. No sign of pleural effusion. No pneumothorax. Bones and soft tissues: No significant findings. IMPRESSION: Unremarkable chest. Dictated by: Junior Hernandez MD @ 09/22/2020 19:17:02 (Electronically Signed)
[2020-09-22 19:50] LABS: CORONAVIRUS COVID-19 NAA NEGATIVE (NEGATIVE); INFLUENZA A NAA NEGATIVE (NEGATIVE); INFLUENZA B NAA NEGATIVE (NEGATIVE)
== END 2020-09-22 20:05 | disposition home or self-care (01) ==
LOC: MW.ED 18:16
DX: J40 Bronchitis, not specified as acute or chronic (principal); Z20.822 Contact with and (suspected) exposure to COVID-19
CPT/HCPCS: 0240U; 71046; 99283

== ENCOUNTER 2022-02-27 14:02 | Emergency (ER) | payer MEDICAID | END 2022-02-27 17:24 | disposition home or self-care (01) | LOC: MW.ED 14:02 | DX: L23.9 Allergic contact dermatitis, unspecified cause (principal); Z79.899 Other long term (current) drug therapy | CPT/HCPCS: 99282; 99283 ==

== ENCOUNTER 2022-05-02 12:56 | Emergency (ER) | payer MEDICAID ==
[2022-05-02] MEDS ORDERED: Ondansetron 4 MG/2 ML SDV IVPUSH ONE (13:31)
[2022-05-02] MEDS ORDERED: Sodium Chloride 0.9% 1,000 ML IV ONE (13:31)
[2022-05-02 14:46] LABS: CARBON DIOXIDE,CO2 24.6 mmol/L (21.0-32.0); POTASSIUM,K 3.7 mmol/L (3.5-5.1)
[2022-05-02 14:48] LABS: CORONAVIRUS COVID-19 NAA NEGATIVE (NEGATIVE); INFLUENZA A NAA NEGATIVE (NEGATIVE); INFLUENZA B NAA NEGATIVE (NEGATIVE)
[2022-05-02] MEDS ORDERED: Metoclopramide 10 MG/2 ML SDV IV ONE (15:41)
[2022-05-02] MEDS ORDERED: Acetaminophen 500 MG Tab PO ONE (15:42)
== END 2022-05-02 16:10 | disposition home or self-care (01) ==
LOC: MW.ED 12:56
DX: K52.9 Noninfective gastroenteritis and colitis, unspecified (principal); Z79.899 Other long term (current) drug therapy; Z90.49 Acquired absence of other specified parts of digestive tract; Z20.822 Contact with and (suspected) exposure to COVID-19
CPT/HCPCS: 0240U; 36415; 80053; 80143; 85025; 96361; 96374; 96375; 99284; A9270; J2405; J2765; J7030

== ENCOUNTER 2022-09-14 13:10 | Emergency (ER) | payer MEDICAID ==
[2022-09-14] MEDS ORDERED: Aspirin 81 MG Tab.Chew PO ONE (13:19)
[2022-09-14] MEDS ORDERED: Sodium Chloride 0.9% 2.5 ML Syringe FLUSH PRN (13:19)
[2022-09-14] MEDS ORDERED: Sodium Chloride 0.9% 10 ML Syringe FLUSH PRN (13:19)
[2022-09-14 13:36] LABS: BASOPHILS PERCENT AUTO 0.3 % (0.0-1.5); EOSINOPHILS PERCENT AUTO 0.3 % (0.0-7.0); HEMATOCRIT 34.6 % (36.0-46.0); HEMOGLOBIN 11.8 g/dL (12.0-16.0); LYMPHOCYTES ABSOLUTE AUTO 1.6 K/uL (0.6-2.4); LYMPHOCYTES PERCENT AUTO 46.8 % (16.0-40.0); MEAN CORPUSCULAR HEMOGLOBIN 28.2 pg (27.0-32.0); MEAN CORPUSCULAR HGB CONC 34.1 g/dL (31.0-37.0); MEAN CORPUSCULAR VOLUME 82.6 fL (80.0-98.0); MONOCYTES ABSOLUTE AUTO 0.4 K/uL (0.0-0.8); NEUTROPHILS ABSOLUTE AUTO 1.4 K/uL (1.4-5.7); NEUTROPHILS PERCENT AUTO 41.6 % (48.0-80.0); NRBC ABSOLUTE 0 K/uL; PLATELET COUNT,PLT 205 K/uL (150-400); RED BLOOD CELL COUNT 4.19 M/uL (4.30-5.90); WHITE BLOOD CELL COUNT,WBC 3.44 K/uL (4.0-11.0)
[2022-09-14] MEDS ORDERED: Ketorolac 30 MG/ML SDV IVPUSH ONE (13:39)
[2022-09-14] MEDS ORDERED: Sodium Chloride 0.9% 1,000 ML IV SCH (13:45)
[2022-09-14 14:29] LABS: A/G RATIO 0.8 (0.9-1.6); ALBUMIN 3.4 g/dL (3.4-5.0); BILIRUBIN TOTAL 0.4 mg/dL (0.2-1.0); CALCIUM 9.1 mg/dL (8.5-10.1); CARBON DIOXIDE,CO2 26.3 mmol/L (21.0-32.0); CREATININE 0.7 mg/dL (0.6-1.0); EST CRCL DRUG DOSING (CG) 85.79 mL/min; POTASSIUM,K 3.8 mmol/L (3.5-5.1); PROTEIN TOTAL,TP 7.6 g/dL (6.4-8.2); TSH ULTRASENSITIVE 0.66 uIU/mL (0.36-3.74)
[2022-09-14 15:01] LABS: CORONAVIRUS COVID-19 NAA NEGATIVE (NEGATIVE); INFLUENZA A NAA NEGATIVE (NEGATIVE); INFLUENZA B NAA NEGATIVE (NEGATIVE); RESPIRATORY SYNCYTIAL VIR NAA NEGATIVE (NEGATIVE)
== END 2022-09-14 16:07 | disposition home or self-care (01) ==
LOC: MW.ED 13:10
DX: R07.2 Precordial pain (principal); D72.819 Decreased white blood cell count, unspecified; Z20.822 Contact with and (suspected) exposure to COVID-19
CPT/HCPCS: 0241U; 36415; 71045; 80053; 84443; 84484; 85025; 93005; 96361; 96374; 99285; A9270; J1885; J3490; J7030; 93010; 99284

== ENCOUNTER 2023-02-09 04:30 | Emergency (ER) | payer MEDICAID ==
[2023-02-09] MEDS ORDERED: Sodium Chloride 0.9% 1,000 ML IV ONE (04:53)
[2023-02-09] MEDS ORDERED: Morphine 4 MG/ML Syringe IVPUSH ONE (04:57)
[2023-02-09] MEDS ORDERED: Ondansetron 4 MG/2 ML SDV IVPUSH ONE (04:57)
[2023-02-09 05:00] LABS: APPEARANCE,URINE CLEAR; BILIRUBIN,URINE NEGATIVE (NEGATIVE); COLOR,URINE YELLOW; GLUCOSE,URINE NEGATIVE (NEGATIVE); KETONES,URINE NEGATIVE (NEGATIVE); LEUKOCYTE ESTERASE,URINE NEGATIVE (NEGATIVE); NITRITE,URINE NEGATIVE (NEGATIVE); OCCULT BLOOD,URINE NEGATIVE (NEGATIVE); PROTEIN,URINE NEGATIVE (NEGATIVE); UROBILINOGEN,URINE 0.2 EU/dL (<2.0)
[2023-02-09 05:15] LABS: BASOPHILS ABSOLUTE AUTO 0.01 K/uL (0.00-0.20); BASOPHILS PERCENT AUTO 0.2 % (0.0-1.0); EOSINOPHILS ABSOLUTE AUTO 0.03 K/uL (0.00-0.45); EOSINOPHILS PERCENT AUTO 0.6 % (0.0-6.0); HEMATOCRIT 37.7 % (37.0-47.0); HEMOGLOBIN 12.6 g/dL (12.0-16.0); LYMPHOCYTES ABSOLUTE AUTO 1.56 K/uL (1.00-4.80); LYMPHOCYTES PERCENT AUTO 32.6 % (24.0-44.0); MEAN CORPUSCULAR HEMOGLOBIN 27.8 pg (28.0-32.0); MEAN CORPUSCULAR HGB CONC 33.4 g/dL (32.0-36.0); MEAN PLATELET VOLUME 10.6 fL (9.4-12.3); MONOCYTES ABSOLUTE AUTO 0.46 K/uL (0.00-0.80); MONOCYTES PERCENT AUTO 9.6 % (0.0-8.0); NEUTROPHILS ABSOLUTE AUTO 2.7 K/uL (1.8-7.7); NEUTROPHILS PERCENT AUTO 56.8 % (41.0-71.0); PLATELET COUNT,PLT 267 K/uL (150-400); RED BLOOD CELL COUNT 4.54 M/uL (4.10-5.30); WHITE BLOOD CELL COUNT,WBC 4.78 K/uL (3.9-11.3)
[2023-02-09] MEDS ORDERED: HYDROmorphone 1 MG/ML Syringe IVPUSH ONE (05:22)
[2023-02-09] MEDS ORDERED: Iopamidol 755 MG/ML 500 ML Multipack Bottle IVPUSH ONE (05:29)
[2023-02-09 05:38] LABS: A/G RATIO 0.7 (0.9-1.6); ALBUMIN 3.4 g/dL (3.4-5.0); BILIRUBIN TOTAL 0.4 mg/dL (0.2-1.0); CALCIUM 9.6 mg/dL (8.5-10.1); CARBON DIOXIDE,CO2 25.9 mmol/L (21.0-32.0); CREATININE 0.7 mg/dL (0.6-1.0); EST CRCL DRUG DOSING (CG) 85.79 mL/min; POTASSIUM,K 4.3 mmol/L (3.5-5.1); PROTEIN TOTAL,TP 8.2 g/dL (6.4-8.2)
[2023-02-09] MEDS ORDERED: Ketorolac 30 MG/ML SDV IVPUSH ONE (07:23)
== END 2023-02-09 09:08 | disposition home or self-care (01) ==
LOC: MW.ED 04:30
DX: M54.50 Low back pain, unspecified (principal); Z79.899 Other long term (current) drug therapy
CPT/HCPCS: 36415; 74177; 76857; 80053; 81003; 83690; 84703; 85025; 96361; 96374; 96375; 99284; J1170; J1885; J2270; J2405; J7030; Q9967

== ENCOUNTER 2024-01-30 17:53 | Emergency (ER) | payer MEDICAID ==
[2024-01-30] MEDS ORDERED: Sodium Chloride 0.9% 2.5 ML Syringe FLUSH PRN (17:55)
[2024-01-30] MEDS: Sodium Chloride 0.9% 10 ML Syringe FLUSH PRN (18:30)
[2024-01-30] MEDS: Ketorolac 30 MG/ML SDV IVPUSH ONE (18:30)
[2024-01-30] MEDS: Sodium Chloride 0.9% 1,000 ML IV SCH (18:30)
[2024-01-30 18:54] LABS: BASOPHILS ABSOLUTE AUTO 0.02 K/uL (0.00-0.20); BASOPHILS PERCENT AUTO 0.5 % (0.0-1.0); EOSINOPHILS ABSOLUTE AUTO 0.07 K/uL (0.00-0.45); EOSINOPHILS PERCENT AUTO 1.7 % (0.0-6.0); HEMATOCRIT 33.3 % (37.0-47.0); HEMOGLOBIN 11.1 g/dL (12.0-16.0); IMMATURE GRAN ABSOLUTE AUTO 0.01 K/uL (0.00-0.05); IMMATURE GRAN PERCENT AUTO 0.2 % (0.0-0.4); LYMPHOCYTES ABSOLUTE AUTO 1.71 K/uL (1.00-4.80); LYMPHOCYTES PERCENT AUTO 40.9 % (24.0-44.0); MEAN CORPUSCULAR HEMOGLOBIN 27.1 pg (28.0-32.0); MEAN CORPUSCULAR HGB CONC 33.3 g/dL (32.0-36.0); MEAN CORPUSCULAR VOLUME 81.2 fL (83.0-99.0); MEAN PLATELET VOLUME 10.7 fL (9.4-12.3); MONOCYTES ABSOLUTE AUTO 0.38 K/uL (0.00-0.80); MONOCYTES PERCENT AUTO 9.1 % (0.0-8.0); NEUTROPHILS ABSOLUTE AUTO 1.99 K/uL (1.80-7.70); NEUTROPHILS PERCENT AUTO 47.6 % (41.0-71.0); PLATELET COUNT,PLT 262 K/uL (150-400); WHITE BLOOD CELL COUNT,WBC 4.18 K/uL (3.9-11.3)
[2024-01-30 19:27] LABS: A/G RATIO 0.7 (0.9-1.6); ALANINE AMINOTRANSFERASE,ALT 32 IU/L (14-63); ALKALINE PHOSPHATASE 132 U/L (46-116); ASPARTATE AMNIOTRANSFERASE,AST 26 IU/L (15-37); BILIRUBIN TOTAL 0.3 mg/dL (0.2-1.0); BLOOD UREA NITROGEN,BUN 11 mg/dL (7.0-18.0); CARBON DIOXIDE,CO2 25.7 mmol/L (21.0-32.0); CHLORIDE,CL 102 mmol/L (98-107); CREATININE 0.8 mg/dL (0.6-1.0); EST CRCL DRUG DOSING (CG) 74.26 mL/min; GLUCOSE RANDOM 111 mg/dL (74-106); POTASSIUM,K 3.6 mmol/L (3.5-5.1); PRO B-TYPE NATRIUR PEPT,BNPPRO 87 pg/mL (0-125); PROTEIN TOTAL,TP 7.6 g/dL (6.4-8.2); SODIUM,NA 134 mmol/L (136-145); TSH ULTRASENSITIVE 0.75 uIU/mL (0.36-3.74)
[2024-01-30 19:29] LABS: ESTIMATED GFR 91 mL/min (>60)
[2024-01-30] MEDS: LORazepam 1 MG Tab PO ONE (20:04)
[2024-01-30] MEDS: traMADol 50 MG Tab PO ONE (20:48)
[2024-01-30] MEDS: Iopamidol 755 MG/ML 500 ML Multipack Bottle IVPUSH STA (22:06)
[2024-01-30] MEDS: Lidocaine 4% 1 each Patch TOP ONE (23:30)
== END 2024-01-30 23:56 | disposition home or self-care (01) ==
LOC: MW.ED 17:53
DX: R07.9 Chest pain, unspecified (principal); Z79.899 Other long term (current) drug therapy; Z75.8 Other problems related to medical facilities and other health care
CPT/HCPCS: 36415; 71045; 71275; 80053; 83880; 84443; 84484; 85025; 93005; 99285; A9270; J1885; J3490; J7030; Q9967; 93010; 99284

== ENCOUNTER 2024-04-24 19:16 | Emergency (ER) | payer MEDICAID | END 2024-04-24 20:46 | disposition left against medical advice (07) | LOC: MW.ED 19:16 | DX: Z53.21 Procedure and treatment not carried out due to patient leaving prior to being seen by health care provider (principal) ==

== ENCOUNTER 2024-06-22 23:02 | Emergency (ER) | payer SELFPAY ==
[2024-06-23] MEDS: Codeine/guaiFENesin 10-100 MG/5 ML Syrup 5 ML Cup PO ONE (01:48)
== END 2024-06-23 01:53 | disposition home or self-care (01) ==
LOC: MW.ED 23:02
DX: J10.1 Influenza due to other identified influenza virus with other respiratory manifestations (principal); Z88.8 Allergy status to other drugs, medicaments and biological substances; Z79.899 Other long term (current) drug therapy
CPT/HCPCS: 87428; 99284; A9270; 99283

== ENCOUNTER 2024-09-07 03:49 | Emergency (ER) | payer OTHER ==
[2024-09-07] MEDS ORDERED: Morphine 2 MG/ML SYRINGE IVPUSH PRN (04:27)
[2024-09-07] MEDS: Ondansetron 4 MG/2 ML SDV IVPUSH ONE (04:47)
[2024-09-07] MEDS: Sodium Chloride 0.9% 1,000 ML IV ONE (04:47)
[2024-09-07] MEDS: Ketorolac 30 MG/ML SDV IVPUSH ONE (04:47)
[2024-09-07] MEDS: Iopamidol 755 MG/ML 500 ML Multipack Bottle IVPUSH ONE (04:56)
[2024-09-07 05:25] LABS: APPEARANCE,URINE CLEAR; BILIRUBIN,URINE NEGATIVE (NEGATIVE); COLOR,URINE YELLOW; GLUCOSE,URINE NEGATIVE (NEGATIVE); KETONES,URINE NEGATIVE (NEGATIVE); LEUKOCYTE ESTERASE,URINE NEGATIVE (NEGATIVE); NITRITE,URINE NEGATIVE (NEGATIVE); OCCULT BLOOD,URINE NEGATIVE (NEGATIVE); PROTEIN,URINE NEGATIVE (NEGATIVE); UROBILINOGEN,URINE 0.2 EU/dL (<2.0)
[2024-09-07 05:35] LABS: BASOPHILS ABSOLUTE AUTO 0.03 K/uL (0.00-0.20); BASOPHILS PERCENT AUTO 0.8 % (0.0-1.0); EOSINOPHILS ABSOLUTE AUTO 0.04 K/uL (0.00-0.45); EOSINOPHILS PERCENT AUTO 1.1 % (0.0-6.0); HEMATOCRIT 34.2 % (37.0-47.0); HEMOGLOBIN 11.4 g/dL (12.0-16.0); IMMATURE GRAN ABSOLUTE AUTO 0.01 K/uL (0.00-0.05); IMMATURE GRAN PERCENT AUTO 0.3 % (0.0-0.4); LYMPHOCYTES ABSOLUTE AUTO 1.64 K/uL (1.00-4.80); LYMPHOCYTES PERCENT AUTO 43.7 % (24.0-44.0); MEAN CORPUSCULAR HEMOGLOBIN 28.1 pg (28.0-32.0); MEAN CORPUSCULAR HGB CONC 33.3 g/dL (32.0-36.0); MEAN CORPUSCULAR VOLUME 84.4 fL (83.0-99.0); MEAN PLATELET VOLUME 10.1 fL (9.4-12.3); MONOCYTES ABSOLUTE AUTO 0.46 K/uL (0.00-0.80); MONOCYTES PERCENT AUTO 12.3 % (0.0-8.0); NEUTROPHILS ABSOLUTE AUTO 1.57 K/uL (1.80-7.70); NEUTROPHILS PERCENT AUTO 41.8 % (41.0-71.0); PLATELET COUNT,PLT 270 K/uL (150-400); RED BLOOD CELL COUNT 4.05 M/uL (4.10-5.30); WHITE BLOOD CELL COUNT,WBC 3.75 K/uL (3.9-11.3)
[2024-09-07 05:56] LABS: A/G RATIO 0.7 (0.9-1.6); ALBUMIN 2.8 g/dL (3.4-5.0); BILIRUBIN TOTAL 0.3 mg/dL (0.2-1.0); CALCIUM 8.5 mg/dL (8.5-10.1); CARBON DIOXIDE,CO2 26.7 mmol/L (21.0-32.0); CREATININE 0.7 mg/dL (0.6-1.0); EST CRCL DRUG DOSING (CG) 83.95 mL/min; POTASSIUM,K 3.8 mmol/L (3.5-5.1); PROTEIN TOTAL,TP 6.9 g/dL (6.4-8.2)
[2024-09-07] MEDS: Morphine 2 MG/ML SYRINGE IVPUSH ONE (06:23)
== END 2024-09-07 06:41 | disposition home or self-care (01) ==
LOC: MW.ED 03:49
DX: K59.00 Constipation, unspecified (principal); R10.31 Right lower quadrant pain; D72.819 Decreased white blood cell count, unspecified; Z90.49 Acquired absence of other specified parts of digestive tract; Z79.899 Other long term (current) drug therapy; Z88.5 Allergy status to narcotic agent
CPT/HCPCS: 36415; 74177; 80053; 81003; 83605; 83690; 84703; 85025; 96361; 96374; 96375; 99284; J1885; J2270; J2405; J7030; Q9967; 99283

== ENCOUNTER 2024-12-29 17:16 | Emergency (ER) | payer OTHER ==
[2024-12-29] MEDS: Lidocaine 2% Viscous Solution 15 ML UD PO ONE (18:33)
[2024-12-29] MEDS: Benzocaine 20% Topical Spray UD MUCMEM ONE (18:34)
== END 2024-12-29 18:34 | disposition home or self-care (01) ==
LOC: MW.ED 17:16
DX: K08.89 Other specified disorders of teeth and supporting structures (principal); Z88.8 Allergy status to other drugs, medicaments and biological substances; Z79.899 Other long term (current) drug therapy
CPT/HCPCS: 99282; A9270; J3490

== ENCOUNTER 2024-12-31 17:57 | Emergency (ER) | payer OTHER | END 2024-12-31 19:44 | disposition home or self-care (01) | LOC: MW.ED 17:57 | DX: K08.89 Other specified disorders of teeth and supporting structures (principal); Z90.49 Acquired absence of other specified parts of digestive tract; Z88.5 Allergy status to narcotic agent; Z79.899 Other long term (current) drug therapy; Z75.3 Unavailability and inaccessibility of health-care facilities | CPT/HCPCS: 99282; A9270 ==